=== PATIENT | female | born 1965 | race Caucasian/White ===

== ENCOUNTER → 2017-08-29 11:40 | Outpatient (CLI) | payer BC, SELFPAY ==
--- NOTE | 2017-08-29 11:45 | HPBI_ITS ---
MAMMOGRAPHY - BILATERAL SCREENING REASON FOR EXAM: Female, 52 years old. Routine annual screening examination. PERTINENT HISTORY: Non-contributory. TECHNIQUE: Digital bilateral breast ayush (3D mammographic acquisition) in the CC and MLO projections. 2-D mediolateral oblique (MLO) and craniocaudad (CC) views of both breasts were obtained. CAD: Full Field Digital Mammography with Computer Added Detection was performed. COMPARISON: Comparison is made with prior outside examination dated November 21, 2015. FINDINGS: Breast Composition: The breasts are heterogeneously dense, which may obscure small masses. There are no dominant masses or suspicious calcifications. No other significant abnormalities are identified. There has been no significant change since the prior study. HPBI/SCREENING MAMM (CAD), BILAT IMPRESSION: Stable bilateral screening mammogram. Yearly follow-up mammogram recommended. (A) ASSESSMENT CATEGORY: BIRADS Category 1: Negative. A letter regarding these results will be sent to the patient by the facility within 30 days. Approximately 10% of breast cancers are not detected by mammography. A normal mammogram should not delay biopsy of a clinically suspicious abnormality. [id number] Electronically Signed: Jakub Davis MD at 10:24 EST Tel [phone], Service support ,
== END ==
PROVIDERS: Family Provider Family Medicine; PCP Family Medicine; Visit Provider Obstetrics & Gynecology
DX: Z12.31 Encounter for screening mammogram for malignant neoplasm of breast (principal)
CPT/HCPCS: 77063; 77067

== ENCOUNTER 2018-01-23 20:15 | Emergency (ER) | payer BC, SELFPAY ==
[2018-01-23 20:16] VITALS: BP 132/80; PULSE 87; RESP 16; TEMP 36.5; O2SAT 98; BMI 29.6
[2018-01-23] MEDS: Glucagon 1 MG/ML Syringe IV (20:50)
[2018-01-23 23:09] VITALS: BP 124/87; PULSE 63; RESP 15; O2SAT 100
[2018-01-23] MEDS: Propofol 200 MG/20 ML Vial 80 MG IV BOLUS (23:30)
[2018-01-23 23:37] VITALS: BP 122/78; BP 154/83; PULSE 88; RESP 17; O2SAT 99
[2018-01-23 23:40] VITALS: BP 130/88; BP 154/83; PULSE 93; RESP 13; O2SAT 99
[2018-01-23 23:45] VITALS: BP 138/80; BP 154/83; PULSE 91; RESP 15; O2SAT 97
--- NOTE | 2018-01-23 23:46 | PCM.CONS.GEN ---
Reason for Consult Date of Consultation: 01/23/18 History of Present Illness: The patient is a 52 year old F with an esophageal foreign body. She was eating steak at lunch time. She has had the sensation of an esophageal foreign body since noon. is noticed previous episodes that have been not quite as severe, but has had occasional issues with solid food sticking in her esophagus. She has never had upper endoscopy Past Medical History Allergies No Known Allergies Allergy (Verified 01/23/18 20:16) Home Medications: Ambulatory Orders Medication Instructions Recorded NK [NK] 01/23/18 Surgical History: no surgical history Smoking Status: Never smoker Review of Systems Constitutional: Denies: Chills, Fever, Weight Change HEENT: Reports: Difficulty Swallowing, Dysphasia. Denies: Head Aches, Sinus Congestion, Sinus Drainage Cardiovascular: Denies: Chest Pain, Palpitations Respiratory: Denies: Cough, Shortness of breath at rest, Sputum production Gastrointestinal: Denies: Abdominal Pain, Nausea, Vomiting Genitourinary: Denies: Dysuria Musculoskeletal: Denies: Joint Pain, Joint Tenderness Skin: Denies: Rash, Wounds Neurological: Denies: Numbness, Tingling, Focal weakness Psychiatric: Denies: Anxiety, Depression, Homicidal Ideations, Suicidal Ideations Hematologic/ Lymphatic: Denies: Easy Bruising, Easy Bleeding - Physical Exam General: Alert, Oriented x3, Cooperative HEENT: Atraumatic, PERRLA, EOMI, Normocephalic Neck: Supple, No JVD, Negative Carotid Bruits Lungs: Clear to auscultation, Normal air movement Cardiovascular: Regular rate, No murmurs Abdomen: Bowel Sounds Present, Soft, Non Tender Extremities: No edema, Capillary Refill Less than 3 Seconds Skin: No rashes, No breakdown Musculoskeletal: No Tenderness to Palpation of Joints or Extremities Neurological: Cranial nerves II-XII grossly intact Psych/Mental Status: Normal Affect, Appropriate Vital Signs Temp Pulse Resp BP Pulse Ox 97.7 F L 63 15 124/87 H 100 01/23/18 20:16 01/23/18 23:09 01/23/18 23:09 01/23/18 23:09 01/23/18 23:09 Oxygen Delivery Method Room Air Weight: 75.8 kg Body Mass Index (BMI) 29.6 Assessment/Plan Esophageal foreign body-removed the patient try the procedure well, and this was a relatively small piece of meat which after 2 attempts at removal with a Gannon net was able to be passed from the stomach relatively easily. The patient is being discharged from the immersed department with recommendations to return immediately if she notes any chest pain, fever or differential worsening difficulty swallowing. Otherwise, I recommended she contact my office earlier this week with plans for follow-up endoscopy in 2-4 weeks to assess for esophageal stricture or eosinophilic esophagitis.
--- NOTE | 2018-01-23 23:50 | OP.PCM_ITS ---
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 Sign in was performed verifying patient, site, planned procedure, critical nursing information, the patient was monitored with cardiac, pulse oximetric, EKG and blood pressure monitoring devices, sedation was provided by the emergency room physician using propofol. Following IV sedation and after the oropharynx was sprayed with Cetacaine spray , a video gastroscope was inserted in the oropharynx and advanced down the esophagus without difficulty. The scope encounter any significant food bolus in the distal esophagus. This was removed in piecemeal fashion with both a Gannon net and/or grasper. After removing multiple pieces of the foreign body in the above fashion, the foreign body was able to be gently passed into the stomach with pressure from the scope. The stomach was visualized unremarkable area did as the gastroscope was removed , the esophagus demonstrated irritation, both from the food bolus and from attempts to remove it without significant deep injury. The patient tolerated the procedure well and was maintained in the trauma bay in stable condition
[2018-01-23 23:52] VITALS: BP 135/81; BP 154/83; PULSE 89; RESP 13; O2SAT 98
--- NOTE | 2018-01-24 00:03 | ED.VISSUMM ---
- ER Visit Summary Date of Service: 01/24/18 Chief Complaint: Food impaction History of Present Illness: The patient is a 52 F who was eating steak for lunch today. Patient feels like a piece of steak got stuck. She has not been able to tolerate p.o. since that time. She ate lunch around 1230 this afternoon. Patient presents at 830 with continued symptoms. She states she has had similar episodes in the past but so has been able to vomit up the blockage and is never required scope. Physical Examination: Vital signs are unremarkable. Patient sitting upright in bed. She speaking full sentences. She does walk to the [place] and spit frequently. Head neck examination is unremarkable. Heart is regular rate and rhythm. Lung sounds are clear. Abdomen is soft nontender. Test Results: [] Emergency Department Course and Treatment: Patient was given IV glucagon with no significant improvement in her symptoms. Dr. Alamo presented to the emergency room. Patient was consented for procedural sedation and EGD. A total of 80 mg of IV propofol was given for sedation. The food bolus was pushed into the stomach by Dr. Alamo. At this time patient is awake and alert. She is able tolerate p.o. fluids without difficulty. Treatment Plan: [] Disposition: Discharge Impression: 1. Food bolus to esophagus 2. Procedural sedation by ED physician and EGD by surgeon This note was generated with [employer] dictation software. It may contain incorrect words, spelling, and punctuation that were not noted in review of the chart prior to signing ED Disposition - Plan for ED Patient: Disposition: Home or Assisted Living Chief Complaint: Foreign Body Instructions: ED Foreign Body Esophageal Rslv Referrals: Ezra Verma MD [Primary Care Provider] - As Needed
--- NOTE | 2018-01-24 00:05 | ED.DEP ---
ED Disposition - Plan for ED Patient: Disposition: Home or Assisted Living Chief Complaint: Foreign Body Instructions: ED Foreign Body Esophageal Rslv Referrals: Ezra Verma MD [Primary Care Provider] - As Needed
[2018-01-24 00:21] VITALS: BP 125/89; PULSE 74; RESP 18
== END 2018-01-24 00:22 | disposition home or self-care (01) ==
PROVIDERS: Surgery; Emergency Provider Emergency Medicine; Family Provider Family Medicine; PCP Family Medicine
PROC: 0DJ08ZZ Inspection of Upper Intestinal Tract, Via Natural or Artificial Opening Endoscopic (ICD-10-PCS; CPT 43235; principal; 2018-01-23 22:00)
DX: T18.128A Food in esophagus causing other injury, initial encounter (principal); X58.XXXA Exposure to other specified factors, initial encounter; Y93.89 Activity, other specified; Y92.9 Unspecified place or not applicable
CPT/HCPCS: 43247; 96374; 99284; J7030; A4216; J1610

== ENCOUNTER → 2018-07-20 13:48 | Outpatient (CLI) | payer BC, SELFPAY ==
[2018-07-23 15:17] LABS: HPV HC, High Risk Negative (Negative)
--- OUTSIDE RECORDS SUMMARY | 2018-10-22 05:10 | XMS RPT_ITS ---
:1965 Author Organization OHIP Care Team Providers Name Role Phone ROQUE CAREY Attending Unavailable ROQUE CAREY Admitting Unavailable ROQUE CAREY Attending Unavailable GLEN ABREU (LEXY) Referring Unavailable Pedro Bowman Attending Unavailable Pedro Bowman Attending Unavailable Sancho Verma Primary Care Unavailable Eula Thrasher Attending Unavailable Alex Jules Referring Unavailable [facility] Primary [facility] Unavailable PROBLEMS PROBLEMS DATE TYPE CONDITION / CODE ATTENDING STATUS SOURCE 07/20/2018 Unknown Z12.4 - Encounter Pedro Bowman Active Nancy for screening for [facility] neoplasm of Repository cervix / Z12.4(ICD-10) 02/06/2018 Active Unspecified Juanito CAREY [facility] foreign body in [facility] esophagus causing Repository other injury, initial encounter / T18.108A(ICD-10) 08/29/2017 Unknown Z12.31 - Pedro Bowman Encounter for [facility] screening [facility] mammogram for Repository malignant neoplasm of breast / Z12.31(ICD-10) PROCEDURES PROCEDURES No Procedure Records FoundRESULTS RESULTS PAP I-G HPV HI Collected: 07/20/2018 Status: F Source: [place] RISK 9:00 AM [facility] REPOSITORY Order Comment: CYTOLOGY INFORMATION: - CLINICAL INFORMATION: POSTMENOPAUSAL - DATE LMP/MENOPAUSE: - COLLECTION VIAL: Thin Prep Vial - CALENDER WIND UP TENDER SOURCE: CERVICAL/ENDOCERVICAL - COLLECTION TECHNIQUE: BRUSH/SPATULA Specimen Comment: [id number] Specimen Comment: Source.............Cervix;Endocervix Specimen Comment: Other..............Post Menopausal Specimen Comment: No. of containers..01 ThinPrep Vial TYPE CODE TESTS RESULT OUT OF RANGE REFERENCE UNITS LAB L7400.0800 . Normal DIAGN Comment Result Comment: NEGATIVE FOR INTRAEPITHELIAL LESION AND MALIGNANCY. CELLULAR CHANGES ASSOCIATED WITH ATROPHY ARE PRESENT. LAB L7400.0900 . Normal ADEQ Comment Result Comment: Satisfactory for evaluation. Endocervical component may not be distinguished in cases of atrophy. LAB L7400.1400 . Normal PERFORM Comment Result Comment: Kathrine Yanez, Geoscientist (ASCP) LAB L7400.2575 . Normal TEST METHOD Comment Result Comment: This liquid based ThinPrep(R) pap test was screened with the use of an image guided system. LAB L7400.2600 . Normal . COMM LAB L7400.2700 . Normal PAPSMR Comment Result Comment: The Pap smear is a screening test designed to aid in the detection of premalignant and malignant conditions of the uterine cervix. It is not a diagnostic procedure and should not be used as the sole means of detecting cervical cancer. Both false-positive and false-negative reports do occur. LAB L7400.2950 Negative Normal HPV Negative HC,HGH RISK Result Comment: This high-risk HPV test detects thirteen high-risk types (16/18/31/33/35/39/45/51/52/56/58/59/68) without differentiation. Performed at: [address] [id number] Payroll Clerk: Megan Perez MD, Phone: [phone] Performed at: =[address] [id number] Payroll Clerk: Megan Perez MD, Phone: [phone] Performed By: #### L7400.0375 #### [facility] (refer to report for specific site) refer to report for address and phone number NURSING PROG Observed: 02/06/2018 Status: COMPLETED Source: [place] 1:10 PM [facility] REPOSITORY HNO ID: [id number] Author: Ag Bañuelos RN Service: Nursing Author Type: Registered Nurse Type: Nursing Progress Note Filed: 02/06/2018 1:10 PM Note Text: Patient did not experience a fall prior to discharge. Patient did not experience a burn prior to discharge. Ag Bañuelos RN PT ED Observed: 02/06/2018 Status: COMPLETED Source: [place] 12:45 PM [facility] REPOSITORY HNO ID: [id number] Author: Ag LundRn) ARTURO Bañuelos Service: Nursing Author Type: Registered Nurse Type: Patient Education Filed: 02/06/2018 12:46 PM Note Text: POST OP LEARNING RESPONSE INSTRUCTION PROVIDED TO: Patient and family member METHOD OF INSTRUCTION: Individual instruction Written instruction - handouts Verbal instruction PATIENT / FAMILY RESPONSE: Information received as demonstrated by interest and questions FOLLOW-UP PLAN: Patient instructed to call with any further issues SUPPLEMENTAL MATERIAL: None REFERRAL (RECOMMENDATION): None Electronically Signed By: Ag Bañuelos RN In Department: AMBULATORY SURGERY NURSING PROG Observed: 02/06/2018 Status: COMPLETED Source: [place] 12:41 PM [facility] REPOSITORY HNO ID: [id number] Author: Ag Smalls) ARTURO Bañuelos Service: Nursing Author Type: Registered Nurse Type: Nursing Progress Note Filed: 02/06/2018 12:43 PM Note Text: Awakening, tolerating snack, spouse at her side. NURSING PROG Observed: 02/06/2018 Status: COMPLETED Source: [place] 12:26 PM [facility] REPOSITORY HNO ID: [id number] Author: Ag Smalls) ARTURO Bañuelos Service: Nursing Author Type: Registered Nurse Type: Nursing Progress Note Filed: 02/06/2018 12:26 PM Note Text: Pt into Endo recovery room in satisfactory condition. Resting on left side. Pt. sleepy but arousable. Abdomen soft, no complaints, all safety maintained. Will continue to monitor. NURSING PROG Observed: 02/06/2018 Status: COMPLETED Source: [place] 12:15 PM [facility] REPOSITORY HNO ID: [id number] Author: Miriam (Rn) ARTURO Louise Service: Nursing Author Type: Registered Nurse Type: Nursing Progress Note Filed: 02/06/2018 12:15 PM Note Text: Patient did not experience a fall within the Intraoperative area. Patient did not experience a burn within the Intraoperative area. Miriam Louise RN NURSING PROG Observed: 02/06/2018 Status: COMPLETED Source: [place] 11:49 AM [facility] REPOSITORY HNO ID: [id number] Author: Alaina LundRn) ARTURO Huitron Service: Nursing Author Type: Registered Nurse Type: Nursing Progress Note Filed: 02/06/2018 11:51 AM Note Text: [facility] PRE-OP NURSING HAND OFF NOTE SBAR Hand off given to Miriam Louise RN. Hand off was communicated verbally and at the patient's bedside and all questions were answered. FALLS/ROSS Patient did not experience a fall within the Preoperative area. Patient did not experience a burn within the Preoperative area. Alaina Huitron RN HISTORY PHYSICAL Observed: 02/06/2018 Status: COMPLETED Source: [place] 10:17 AM [facility] REPOSITORY HNO ID: [id number] Author: Roque Carey Service: General Surgery Author Type: Physician Type: HANDP Filed: 02/06/2018 10:17 AM Note Text: HISTORY AND PHYSICAL ? Nette iPsano 1965 ? REFERRING PHYSICIAN: [facility] ? CHIEF COMPLAINT: Post Op (egd) ? HPI: The patient is a 52 year old female, who I had seen in the emergency department on January 23, 2018 for an esophageal foreign body- steak. The patient's had recurring episodes of dysphagia. She has not had previous upper endoscopy. She returns today. She notes she is swallowing without difficulties, although has minor sore throat discomfort. She also had a four-day headache after discharge from the ER. ? PAST MEDICAL HISTORY PAST MEDICAL HISTORY Diagnosis Date - Cervicitis and endocervicitis 09/16/06 ? cerivcal inflammation on biopsy done for ascus pap - Human papillomavirus in conditions classified elsewhere and of unspecified site 08/26/06 - Papanicolaou smear of cervix with atypical squamous cells of undetermined significance (ASC-US) 08/26/06 - past ? ? abnormal mammograms nothing significant found. ? ? PAST SURGICAL HISTORY PAST SURGICAL HISTORY Procedure Laterality Date - COLPOSCOPY W BX CERVIX ? 09/16/06 ? chronic inflammation ? ? ? CURRENT MEDICATIONS ? Current Outpatient Prescriptions: fluticasone propionate (FLONASE NASAL) Use in the nose. TRIPHASIL-28 50-30 (6)/75-40 (5)/125-30(10) ORAL Tab Take one(1) tablet daily. (Patient not taking: No sig reported) LORATADINE-PSEUDOEPHEDRINE SR 10 MG-240 MG 24 HR TAB as necessary ? No current facility-administered medications for this visit. ? ALLERGIES: Cephalexin ? PERSONAL HISTORY: SOCIAL HISTORY Social History Marital status: Single Spouse name: Years of education: 12 Number of children: 2 ? 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 Social History Main Topics Smoking status: Never Smoker ? Smokeless tobacco: Never Used Alcohol use: Yes Comment: occasional Drug use: No Sexual activity: Yes Partners with: Male control/protection: Pill Comment: trilevlin ? ? FAMILY HISTORY: FAMILY HISTORY FAMILY HISTORY Problem Relation Age of Onset - Lipids Father ? - Thyroid Mother ? - kidney [Other] [OTHER] Father ? ? ? shut down twice - Heart Father ? - liver [Other] [OTHER] Father ? - liver [Other] [OTHER] Sister ? - Lipids Brother ? - Hypertension Father ? - Diabetes Father ? ? ? REVIEW OF SYMPTOMS: The review of systems data was entered by the nurse and reviewed by me ? There are no exam notes on file for this visit. ? PHYSICAL EXAMINATION: ? General: The patient is 52 year old female, well nourished, well hydrated in no acute distress. The patient is oriented to time, place, and person. ? VITALS: Blood pressure 104/74, pulse 76, temperature 36.6 ?C (97.9 ?F), weight 74.8 kg (165 lb). There is no height or weight on file to calculate BMI. ? HEENT: Normal cephalic, ataumatic, pupils are equally round, sclera are anicteric, mucous membranes are moist, oropharynx is clear. Neck has no masses, asymmetry or lymphadenopathy. Thyroid is unremarkable. ? Respiratory: Clear to auscultation and percussion. Normal respiratory excursion and pattern. ? Cardiac: Examination is regular rate and rhythm. ? Abdominal exam: Soft, nontender, with no palpable masses. No hepatosplenomegaly. No palpable hernias. ? Rectal exam: exam deferred ? Extremities: no clubbing, cyanosis or edema. No adenopathy. ? Other: ? LABORATORY VALUES: As Noted ? RADIOLOGIC STUDIES: As Noted ? Assessment IMPRESSION: Esophageal foreign body ? PLAN: I plan to perform upper endoscopy. We discussed the risks and benefits of the planned endoscopy. I have informed the patient that complications can occur including failure to complete the endoscopy and perforation. The patient had the opportunity to ask questions concerning the planned endoscopy. My staff has also explained the procedure to the patient in understandable terms and has given the patient printed material concerning the procedure. The patient freely consents to surgery. ? Diagnoses: (T18.108A) Esophageal foreign body, initial encounter (primary encounter diagnosis) ? ? Return to Clinic: The patient is instructed to follow-up with me after the testing has been completed. ? Roque Carey MD PT ED Observed: 02/06/2018 Status: COMPLETED Source: [place] 9:54 AM [facility] REPOSITORY HNO ID: [id number] Author: Alaina Godoy (Rn) ARTURO Huitron Service: Nursing Author Type: Registered Nurse Type: Patient Education Filed: 02/06/2018 9:55 AM Note Text: PRE OP LEARNING ASSESSMENT PROCEDURE/SURGERY: GI PROCEDURES: EGD READINESS TO LEARN COGNITIVE ABILITY: Alert and oriented MOTIVATION TO LEARN: Eager FAMILY SUPPORT: High - Very involved in pt care PATIENT LEARNS BEST BY: Verbal Instruction FACTORS AFFECTING LEARNING: None PHYSICAL LIMITATIONS AFFECTING LEARNING: None Electronically Signed By: Alaina Huitron RN In Department: AMBULATORY SURGERY SURGICAL PATHOLOGY Observed: 02/06/2018 Status: C Source: [place] 12:00 AM [facility] REPOSITORY ADDENDUM PRESENT Specimen originated from [facility] Specimen #: [id number] Submitting Physician: ROQUE CAREY ([id number]) FINAL DIAGNOSIS 1. Stomach, antrum, biopsy (A) - Antral-type gastric mucosa with changes of inactive chronic gastritis with mild reactive epithelial changes. - An H. pylori immunohistochemical stain will be performed, the results of which will be reported in an addendum. 2. Esophagogastric junction, biopsy (B) - Fragments of squamous mucosa with reactive and regenerative epithelial changes of the type often associated with gastroesophageal reflux disease. - No prominence in eosinophils and no intestinal metaplasia. 3. Esophagus, mid, biopsy (C) - Fragments of squamous mucosa with no diagnostic abnormalities. - No prominence in eosinophils and no intestinal metaplasia. [place] 02/10/2018 Refugio Garces M.D., Ph.D. (Electronic Signature) SPECIMEN SUBMITTED A: ANTRUM, BIOPSY H/H B: ESOPHAGOGASTRIC JUNCTION, BIOPSY C: MID ESOPHAGUS, BIOPSY ADDENDUM Date Ordered: 02/11/2018 Date Reported: 02/11/2018 Given the background of chronic gastritis a Helicobacter pylori immunostain was performed on block A1 and is negative for Helicobacter pylori organisms. //02-11-2018 Laboratory Developed Test (LDT) Disclaimer: Positive and negative controls stain appropriately. Performance characteristics of immunohistochemical, immunofluorescent and chromogenic in-situ hybridization tests have been determined by [facility] [place] ([facility]) in a manner consistent with CLIA requirements. One or more of these tests have not been cleared or approved by the FDA. [facility] is regulated under CLIA as qualified to perform high-complexity testing. These tests are used for clinical purposes. They should not be regarded as investigational or for research. Addendum Pathologist: Refugio Garces M.D., Ph.D. Electronic Signature CLINICAL DATA T18.108A GROSS DESCRIPTION A. Received in formalin is one piece of raines, soft tissue measuring 0.3 x 0.2 x 0.2 cm. Totally submitted in one cassette. B. Received in formalin are three pieces of raines, soft tissue aggregating to 0.6 x 0.2 x 0.1 cm. Totally submitted in one cassette. C. Received in formalin are two pieces of raines, soft tissue aggregating to 0.5 x 0.2 x 0.1 cm. Totally submitted in one cassette. Gross examination performed at [facility], [address] [place] [address] 02/06/2018 10:08:54 PM Date of Report: 02/10/2018 Date of Procedure: 02/06/2018 Date of Receipt: 02/06/2018 Submitted by: ROQUE CAREY ([email or web address]) Location: [facility] Diagnostic interpretation performed at [place] [address]. PROGRESS Observed: 01/30/2018 Status: COMPLETED Source: [place] 2:42 PM [facility] REPOSITORY HNO ID: [id number] Author: Roque Carey Service: (none) Author Type: Physician Type: Progress Notes Filed: 01/30/2018 2:43 PM Note Text: HISTORY AND PHYSICAL [facility] 1965 REFERRING PHYSICIAN: [facility] [place] CHIEF COMPLAINT: Post Op (egd) HPI: The patient is a 52 year old female, who I had seen in the emergency department on January 23, 2018 for an esophageal foreign body- steak. The patient's had recurring episodes of dysphagia. She has not had previous upper endoscopy. She returns today. She notes she is swallowing without difficulties, although has minor sore throat discomfort. She also had a four-day headache after discharge from the ER. PAST MEDICAL HISTORY Diagnosis Date - Cervicitis and endocervicitis 09/16/06 cerivcal inflammation on biopsy done for ascus pap - Human papillomavirus in conditions classified elsewhere and of unspecified site 08/26/06 - Papanicolaou smear of cervix with atypical squamous cells of undetermined significance (ASC-US) 08/26/06 - past abnormal mammograms nothing significant found. PAST SURGICAL HISTORY Procedure Laterality Date - COLPOSCOPY W BX CERVIX 09/16/06 chronic inflammation Current Outpatient Prescriptions: fluticasone propionate (FLONASE NASAL) Use in the nose. TRIPHASIL-28 50-30 (6)/75-40 (5)/125-30(10) ORAL Tab Take one(1) tablet daily. (Patient not taking: No sig reported) LORATADINE-PSEUDOEPHEDRINE SR 10 MG-240 MG 24 HR TAB as necessary No current facility-administered medications for this visit. 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 [employer] Social History Main Topics Smoking status: Never Smoker Smokeless tobacco: Never Used Alcohol use: Yes Comment: occasional Drug use: No Sexual activity: Yes Partners with: Male control/protection: Pill Comment: giuseppe FAMILY HISTORY: FAMILY HISTORY Problem Relation Age of Onset - Lipids Father - Thyroid Mother - kidney [Other] [OTHER] Father shut down twice - Heart Father - liver [Other] [OTHER] Father - liver [Other] [OTHER] Sister - Lipids Brother - Hypertension Father - Diabetes Father REVIEW OF SYMPTOMS: The review of systems data was entered by the nurse and reviewed by me There are no exam notes on file for this visit. PHYSICAL EXAMINATION: General: The patient is 52 year old female, well nourished, well hydrated in no acute distress. The patient is oriented to time, place, and person. VITALS: Blood pressure 104/74, pulse 76, temperature 36.6 ?C (97.9 ?F), weight 74.8 kg (165 lb). There is no height or weight on file to calculate BMI. HEENT: Normal cephalic, ataumatic, pupils are equally round, sclera are anicteric, mucous membranes are moist, oropharynx is clear. Neck has no masses, asymmetry or lymphadenopathy. Thyroid is unremarkable. Respiratory: Clear to auscultation and percussion. Normal respiratory excursion and pattern. Cardiac: Examination is regular rate and rhythm. Abdominal exam: Soft, nontender, with no palpable masses. No hepatosplenomegaly. No palpable hernias. Rectal exam: exam deferred Extremities: no clubbing, cyanosis or edema. No adenopathy. Other: LABORATORY VALUES: As Noted RADIOLOGIC STUDIES: As Noted Assessment IMPRESSION: Esophageal foreign body PLAN: I plan to perform upper endoscopy. We discussed the risks and benefits of the planned endoscopy. I have informed the patient that complications can occur including failure to complete the endoscopy and perforation. The patient had the opportunity to ask questions concerning the planned endoscopy. My staff has also explained the procedure to the patient in understandable terms and has given the patient printed material concerning the procedure. The patient freely consents to surgery. Diagnoses: (T18.108A) Esophageal foreign body, initial encounter (primary encounter diagnosis) Return to Clinic: The patient is instructed to follow-up with me after the testing has been completed. Roque Carey MD CNOV Observed: 01/30/2018 Status: COMPLETED Source: [place] 2:00 PM [facility] REPOSITORY Office Visit (GENSWS) NETTE PISANO ([id number]) 1965 F Date Time Provider Department 01/30/18 2:00 PM ROQUE CAREY GENZEYNEP During your visit today, we recorded the following information about you: Temperature Pulse Blood pressure Weight 97.9 degrees 76/minute 104/74 74.8 kg Roque Carey MD 01/30/2018 2:43 PM Signed HISTORY AND PHYSICAL Nette Pisano 1965 [facility]F COMPLAINT: Post Op (egd) HPI: The patient is a 52 year old female, who I had seen in the emergency department on January 23, 2018 for an esophageal foreign body- steak. The patient's had recurring episodes of dysphagia. She has not had previous upper endoscopy. She returns today. She notes she is swallowing without difficulties, although has minor sore throat discomfort. She also had a four-day headache after discharge from the ER. PAST MEDICAL HISTORY Diagnosis Date - Cervicitis and endocervicitis 09/16/06 cerivcal inflammation on biopsy done for ascus pap - Human papillomavirus in conditions classified elsewhere and of unspecified site 08/26/06 - Papanicolaou smear of cervix with atypical squamous cells of undetermined significance (ASC-US) 08/26/06 - past abnormal mammograms nothing significant found. PAST SURGICAL HISTORY Procedure Laterality Date - COLPOSCOPY W BX CERVIX 09/16/06 chronic inflammation Current Outpatient Prescriptions: fluticasone propionate (FLONASE NASAL) Use in the nose. TRIPHASIL-28 50-30 (6)/75-40 (5)/125-30(10) ORAL Tab Take one(1) tablet daily. (Patient not taking: No sig reported) LORATADINE-PSEUDOEPHEDRINE SR 10 MG-240 MG 24 HR TAB as necessary No current facility-administered medications for this visit. 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 [employer] Social History Main Topics Smoking status: Never Smoker Smokeless tobacco: Never Used Alcohol use: Yes Comment: occasional Drug use: No Sexual activity: Yes Partners with: Male control/protection: Pill Comment: giuseppe FAMILY HISTORY: FAMILY HISTORY Problem Relation Age of Onset - Lipids Father - Thyroid Mother - kidney [Other] [OTHER] Father shut down twice - Heart Father - liver [Other] [OTHER] Father - liver [Other] [OTHER] Sister - Lipids Brother - Hypertension Father - Diabetes Father REVIEW OF SYMPTOMS: The review of systems data was entered by the nurse and reviewed by me There are no exam notes on file for this visit. PHYSICAL EXAMINATION: General: The patient is 52 year old female, well nourished, well hydrated in no acute distress. The patient is oriented to time, place, and person. VITALS: Blood pressure 104/74, pulse 76, temperature 36.6 ?C (97.9 ?F), weight 74.8 kg (165 lb). There is no height or weight on file to calculate BMI. HEENT: Normal cephalic, ataumatic, pupils are equally round, sclera are anicteric, mucous membranes are moist, oropharynx is clear. Neck has no masses, asymmetry or lymphadenopathy. Thyroid is unremarkable. Respiratory: Clear to auscultation and percussion. Normal respiratory excursion and pattern. Cardiac: Examination is regular rate and rhythm. Abdominal exam: Soft, nontender, with no palpable masses. No hepatosplenomegaly. No palpable hernias. Rectal exam: exam deferred Extremities: no clubbing, cyanosis or edema. No adenopathy. Other: LABORATORY VALUES: As Noted RADIOLOGIC STUDIES: As Noted Assessment IMPRESSION: Esophageal foreign body PLAN: I plan to perform upper endoscopy. We discussed the risks and benefits of the planned endoscopy. I have informed the patient that complications can occur including failure to complete the endoscopy and perforation. The patient had the opportunity to ask questions concerning the planned endoscopy. My staff has also explained the procedure to the patient in understandable terms and has given the patient printed material concerning the procedure. The patient freely consents to surgery. Diagnoses: (T18.108A) Esophageal foreign body, initial encounter (primary encounter diagnosis) Return to Clinic: The patient is instructed to follow-up with me after the testing has been completed. MD Asha Klein RN 01/30/2018 2:51 PM Signed REVIEW OF SYSTEMS: General: The patient denies fatigue, denies weight loss, denies weight gain, denies feeling hot, and denies feelings of cold. Eyes: The patient denies glaucoma, denies eye injury/surgery, wears glasses or contacts. Ear/Nose/Throat: The patient notes allergies, denies hayfever, denies ear infections, and denies bloody noses. Cardiovascular: The patient denies chest pain, denies heart disease, denies high blood pressure,denies cardiac stent, denies prior heart attack, denies irregular heart beat, denies high cholesterol, denies poor circulation, denies heart failure, other cardiac issues, denies claudication, denies cold feet, denies peripheral arterial stent. Respiratory: The patient denies tuberculosis, denies pneumonia, denies frequent cough, denies pulmonary embolism, denies shortness of breath, and denies coughing up blood. Gastrointestinal: The patient notes difficulty swallowing, denies acid reflux, denies ulcers, denies vomiting, denies jaundice/hepatitis, denies gallbladder problems, denies black or tarry stools, denies hemorrhoids, denies bleeding from rectum, denies diverticulitis, denies constipation, denies diarrhea, denies loss of stool control, and denies hernias. Kidney/Bladder: The patient denies kidney stones, denies urine infections, and denies bloody urine. Skin: The patient denies a history of skin cancer, denies bleeding/changing moles, and denies a history of skin rash. Neurologic: The patient denies a history of epilepsy/convulsions, denies headaches, denies head/spinal injuries, and denies stroke/TIA. Psychiatric: The patient denies psychiatric medications, denies depression, and denies voices, denies substance abuse. Endocrine: The patient denies thyroid disorders, denies diabetes, and denies hormonal problems. Hematologic: The patient denies a history of bruising, denies bleeding, and denies anemia, denies blood clots. Infections: The patient denies a history of measles and mumps, denies rheumatic fever, and denies sexually transmitted diseases. Musculoskeletal: The patient denies back pain/injury, denies back problems, denies sciatica, denies knee/foot trouble, denies arthritis, or denies gout. When was patient's last Mammogram screening? 08/2017 Last Colonoscopy: no Asha Asif RN Referring Provider: [facility] [[id number]] Allergies As of Date: 01/30/2018 Noted Allergy Reaction CEPHALEXIN 08/26/2006 2 - Rash Date Reviewed: 01/30/2018 Reviewed by: Roque Carey - Fully Assessed Reason for Visit: Post Op [174] Cmt: egd Primary Visit Diagnosis:Esophageal foreign body, initial encounter [T18.108A] Prescriptions as of 01/30/2018 Sig: FLONASE NASAL Use in the nose. TRIPHASIL (28) 50-30 (6)/75-4* Take one(1) tablet daily. Patient not taking: No sig reported LORATADINE-PSEUDOEPHEDRINE ER* as necessary Problem List As Of Date 01/30/2018 Noted Resolved PAP SMEAR OF CERVIX W ASCUS [R87.610] INVALID FOR* HUMAN PAPILLOMAVIRUS NOS [B97.7] INVALID FOR* Visit Notes: >> Asha Asif RN FriJan 30, 2018 2:50 PM Status: Signed REVIEW OF SYSTEMS: General: The patient denies fatigue, denies weight loss, denies weight gain, denies feeling hot, and denies feelings of cold. Eyes: The patient denies glaucoma, denies eye injury/surgery, wears glasses or contacts. Ear/Nose/Throat: The patient notes allergies, denies hayfever, denies ear infections, and denies bloody noses. Cardiovascular: The patient denies chest pain, denies heart disease, denies high blood pressure,denies cardiac stent, denies prior heart attack, denies irregular heart beat, denies high cholesterol, denies poor circulation, denies heart failure, other cardiac issues, denies claudication, denies cold feet, denies peripheral arterial stent. Respiratory: The patient denies tuberculosis, denies pneumonia, denies frequent cough, denies pulmonary embolism, denies shortness of breath, and denies coughing up blood. Gastrointestinal: The patient notes difficulty swallowing, denies acid reflux, denies ulcers, denies vomiting, denies jaundice/hepatitis, denies gallbladder problems, denies black or tarry stools, denies hemorrhoids, denies bleeding from rectum, denies diverticulitis, denies constipation, denies diarrhea, denies loss of stool control, and denies hernias. Kidney/Bladder: The patient denies kidney stones, denies urine infections, and denies bloody urine. Skin: The patient denies a history of skin cancer, denies bleeding/changing moles, and denies a history of skin rash. Neurologic: The patient denies a history of epilepsy/convulsions, denies headaches, denies head/spinal injuries, and denies stroke/TIA. Psychiatric: The patient denies psychiatric medications, denies depression, and denies voices, denies substance abuse. Endocrine: The patient denies thyroid disorders, denies diabetes, and denies hormonal problems. Hematologic: The patient denies a history of bruising, denies bleeding, and denies anemia, denies blood clots. Infections: The patient denies a history of measles and mumps, denies rheumatic fever, and denies sexually transmitted diseases. Musculoskeletal: The patient denies back pain/injury, denies back problems, denies sciatica, denies knee/foot trouble, denies arthritis, or denies gout. When was patient's last Mammogram screening? 08/2017 Last Colonoscopy: no Asha Asif ARTURO Encounter Status:Closed by ROQUE CAREY MD on 01/30/18 HOSP Observed: 01/30/2018 Status: COMPLETED Source: [place] 12:00 AM [facility] REPOSITORY Patient:Nette Pisano MRN: <[id number]> Height:5' 2.5(1.588 m) Weight:165 lb (74.844 kg) Outpatient Medications as of 02/06/18: fluticasone propionate (FLONASE NASAL) LORATADINE-PSEUDOEPHEDRINE SR 10 MG-240 MG 24 HR TAB Admission/Clinic Administered Medications as of 02/06/18: lactated ringers infusion Problem List: Papanicolaou smear of cervix with atypical squamous cells of undetermined significance (ASC-US) [R87.610] Human papillomavirus in conditions classified elsewhere and of unspecified site [B97.7] Allergies: Cephalexin Date Verified: 02/06/18 Lab Values No results within the last 30 days for the following basenames: K,HCT Progress Notes ([facility]): Michael Hyde 01/30/2018 2:47 PM Signed 02-06-2018 EGD Michael Gannon LPN 02/03/2018 7:21 AM Signed please file order for EGD Progress Notes ([facility]): Roque Carey MD 01/30/2018 2:43 PM Signed HISTORY AND PHYSICAL Nette Pisano 1965 REFERRING PHYSICIAN: [facility], Baldev Cruz CHIEF COMPLAINT: Post Op (egd) HPI: The patient is a 52 year old female, who I had seen in the emergency department on January 23, 2018 for an esophageal foreign body- steak. The patient's had recurring episodes of dysphagia. She has not had previous upper endoscopy. She returns today. She notes she is swallowing without difficulties, although has minor sore throat discomfort. She also had a four-day headache after discharge from the ER. PAST MEDICAL HISTORY Diagnosis Date - Cervicitis and endocervicitis 09/16/06 cerivcal inflammation on biopsy done for ascus pap - Human papillomavirus in conditions classified elsewhere and of unspecified site 08/26/06 - Papanicolaou smear of cervix with atypical squamous cells of undetermined significance (ASC-US) 08/26/06 - past abnormal mammograms nothing significant found. PAST SURGICAL HISTORY Procedure Laterality Date - COLPOSCOPY W BX CERVIX 09/16/06 chronic inflammation Current Outpatient Prescriptions: fluticasone propionate (FLONASE NASAL) Use in the nose. TRIPHASIL-28 50-30 (6)/75-40 (5)/125-30(10) ORAL Tab Take one(1) tablet daily. (Patient not taking: No sig reported) LORATADINE-PSEUDOEPHEDRINE SR 10 MG-240 MG 24 HR TAB as necessary No current facility-administered medications for this visit. 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 [employer] Social History Main Topics Smoking status: Never Smoker Smokeless tobacco: Never Used Alcohol use: Yes Comment: occasional Drug use: No Sexual activity: Yes Partners with: Male control/protection: Pill Comment: giuseppe FAMILY HISTORY: FAMILY HISTORY Problem Relation Age of Onset - Lipids Father - Thyroid Mother - kidney [Other] [OTHER] Father shut down twice - Heart Father - liver [Other] [OTHER] Father - liver [Other] [OTHER] Sister - Lipids Brother - Hypertension Father - Diabetes Father REVIEW OF SYMPTOMS: The review of systems data was entered by the nurse and reviewed by me There are no exam notes on file for this visit. PHYSICAL EXAMINATION: General: The patient is 52 year old female, well nourished, well hydrated in no acute distress. The patient is oriented to time, place, and person. VITALS: Blood pressure 104/74, pulse 76, temperature 36.6 ?C (97.9 ?F), weight 74.8 kg (165 lb). There is no height or weight on file to calculate BMI. HEENT: Normal cephalic, ataumatic, pupils are equally round, sclera are anicteric, mucous membranes are moist, oropharynx is clear. Neck has no masses, asymmetry or lymphadenopathy. Thyroid is unremarkable. Respiratory: Clear to auscultation and percussion. Normal respiratory excursion and pattern. Cardiac: Examination is regular rate and rhythm. Abdominal exam: Soft, nontender, with no palpable masses. No hepatosplenomegaly. No palpable hernias. Rectal exam: exam deferred Extremities: no clubbing, cyanosis or edema. No adenopathy. Other: LABORATORY VALUES: As Noted RADIOLOGIC STUDIES: As Noted Assessment IMPRESSION: Esophageal foreign body PLAN: I plan to perform upper endoscopy. We discussed the risks and benefits of the planned endoscopy. I have informed the patient that complications can occur including failure to complete the endoscopy and perforation. The patient had the opportunity to ask questions concerning the planned endoscopy. My staff has also explained the procedure to the patient in understandable terms and has given the patient printed material concerning the procedure. The patient freely consents to surgery. Diagnoses: (T18.108A) Esophageal foreign body, initial encounter (primary encounter diagnosis) Return to Clinic: The patient is instructed to follow-up with me after the testing has been completed. MD Asha Klein RN 01/30/2018 2:51 PM Signed REVIEW OF SYSTEMS: General: The patient denies fatigue, denies weight loss, denies weight gain, denies feeling hot, and denies feelings of cold. Eyes: The patient denies glaucoma, denies eye injury/surgery, wears glasses or contacts. Ear/Nose/Throat: The patient notes allergies, denies hayfever, denies ear infections, and denies bloody noses. Cardiovascular: The patient denies chest pain, denies heart disease, denies high blood pressure,denies cardiac stent, denies prior heart attack, denies irregular heart beat, denies high cholesterol, denies poor circulation, denies heart failure, other cardiac issues, denies claudication, denies cold feet, denies peripheral arterial stent. Respiratory: The patient denies tuberculosis, denies pneumonia, denies frequent cough, denies pulmonary embolism, denies shortness of breath, and denies coughing up blood. Gastrointestinal: The patient notes difficulty swallowing, denies acid reflux, denies ulcers, denies vomiting, denies jaundice/hepatitis, denies gallbladder problems, denies black or tarry stools, denies hemorrhoids, denies bleeding from rectum, denies diverticulitis, denies constipation, denies diarrhea, denies loss of stool control, and denies hernias. Kidney/Bladder: The patient denies kidney stones, denies urine infections, and denies bloody urine. Skin: The patient denies a history of skin cancer, denies bleeding/changing moles, and denies a history of skin rash. Neurologic: The patient denies a history of epilepsy/convulsions, denies headaches, denies head/spinal injuries, and denies stroke/TIA. Psychiatric: The patient denies psychiatric medications, denies depression, and denies voices, denies substance abuse. Endocrine: The patient denies thyroid disorders, denies diabetes, and denies hormonal problems. Hematologic: The patient denies a history of bruising, denies bleeding, and denies anemia, denies blood clots. Infections: The patient denies a history of measles and mumps, denies rheumatic fever, and denies sexually transmitted diseases. Musculoskeletal: The patient denies back pain/injury, denies back problems, denies sciatica, denies knee/foot trouble, denies arthritis, or denies gout. When was patient's last Mammogram screening? 08/2017 Last Colonoscopy: no Asha Asif RN EMERGENCY DEPARTMENT Observed: 01/27/2018 Status: F Source: [facility] SUMMARY 6:09 PM [facility] REPOSITORY [facility] Medical Records Department [address] [place] [address] Emergency Department Summary 01/24/18 0003 MR#: [id number] Acct: [id number] Name: NETTE PISANO Rep #: [id number] : 1965 52 From: Eula Thrasher MD PCP: Sancho Verma MD Status: DEP ER - ER Visit Summary Date of Service: 01/24/18 Chief Complaint: Food impaction History of Present Illness: The patient is a 52 F who was eating steak for lunch today. Patient feels like a piece of steak got stuck. She has not been able to tolerate p.o. since that time. She ate lunch around 1230 this afternoon. Patient presents at 830 with continued symptoms. She states she has had similar episodes in the past but so has been able to vomit up the blockage and is never required scope. Physical Examination: Vital signs are unremarkable. Patient sitting upright in bed. She speaking full sentences. She [facility] and spit frequently. Head neck examination is unremarkable. Heart is regular rate and rhythm. Lung sounds are clear. Abdomen is soft nontender. Test Results: [] Emergency Department Course and Treatment: Patient was given IV glucagon with no significant improvement in her symptoms. Dr. Alamo presented to the emergency room. Patient was consented for procedural sedation and EGD. A total of 80 mg of IV propofol was given for sedation. The food bolus was pushed into the stomach by Dr. Alamo. At this time patient is awake and alert. She is able tolerate p.o. fluids without difficulty. Treatment Plan: [] Disposition: Discharge Impression: 1. Food bolus to esophagus 2. Procedural sedation by ED physician and EGD by surgeon This note was generated with [employer] dictation software. It may contain incorrect words, spelling, and punctuation that were not noted in review of the chart prior to signing ED Disposition - Plan for ED Patient: Disposition: Home or Assisted Living Chief Complaint: Foreign Body Instructions: ED Foreign Body Esophageal Rslv Referrals: Ezra Verma MD [Primary Care Provider] - As Needed What to do if you have Problems For any increased pain, shortness of breath, bleeding, nausea or vomiting, chest pain, or any unexpected problems, contact your Primary Care Provider. Call [facility] ([phone]) or report to the closest Emergency Room. Call 911 if necessary. 01/27/18 1809 <Electronically signed by Eula Thrasher MD> Date Eula Thrasher MD Cosigner Signature (If Indicated): Date CC: Sancho Verma MD PROGRESS Observed: 01/25/2018 Status: COMPLETED Source: [place] 10:41 AM [facility] REPOSITORY HNO ID: [id number] Author: Roque Carey Service: (none) Author Type: Physician Type: Progress Notes Filed: 01/25/2018 10:43 AM Note Text: OPERATIVE NOTATION FOR [facility] SURGICAL PROCEDURE. January 23, 2018 Nette Pisano 1965 [id number] female PROCEDURE: EGD WITH REMOVAL OF FOREIGN BODY - 66201- SURGEON: Cori Carey M.D. FACS SONG PLUGGER: None DEPT: WQ PROVIDER: [id number] Carey MD POS: [id number] DIAGNOSIS: (T18.108A) Esophageal foreign body, initial encounter (primary encounter diagnosis) ASA CLASS: 2E - mild emergency FINDINGS: COMPLICATIONS: None PMHx - PAST MEDICAL HISTORY Diagnosis Date - Cervicitis and endocervicitis 09/16/06 cerivcal inflammation on biopsy done for ascus pap - Human papillomavirus in conditions classified elsewhere and of unspecified site 08/26/06 - Papanicolaou smear of cervix with atypical squamous cells of undetermined significance (ASC-US) 08/26/06 - past abnormal mammograms nothing significant found. COMORBIDITIES - None Post Op Occurrences - None Wound Classification - Clean Contaminated Operative note dictated in the [facility] dictation system. Roque Carey MD OPERATIVE REPORT Observed: 01/24/2018 Status: F Source: [facility] 9:08 [facility] REPOSITORY [facility] Medical Records Department [address] [place] [address] Operative Report 01/23/18 2348 MR#: [id number] Acct: [id number] Name: NETET PISANO Rep #: [id number] : 1965 52 From: Roque Carey MD PCP: Sancho Verma MD Status: DEP ER Y Location: ED Report of Operation Date of Procedure: 01/23/18 Pre-Operative Diagnosis: esophageal foreign body Post-Operative Diagnosis: esophageal foreign body Surgery/Procedure Performed:: EGD removal of esophageal foreign body educational program director: None Type of Anesthesia:: Sedation,Conscious Specimen's removed: none Description of Procedure: The patient was brought to the trauma resuscitation room in the emergency department. Sign in was performed verifying patient, site, planned procedure, critical nursing information, the patient was monitored with cardiac, pulse oximetric, EKG and blood pressure monitoring devices, sedation was provided by the emergency room physician using propofol. Following IV sedation and after the oropharynx was sprayed with Cetacaine spray, a video gastroscope was inserted in the oropharynx and advanced down the esophagus without difficulty. The scope encounter any significant food bolus in the distal esophagus. This was removed in piecemeal fashion with both a Gannon net and/or grasper. After removing multiple pieces of the foreign body in the above fashion, the foreign body was able to be gently passed into the stomach with pressure from the scope. The stomach was visualized unremarkable area did as the gastroscope was removed, the esophagus demonstrated irritation, both from the food bolus and from attempts to remove it without significant deep injury. The patient tolerated the procedure well and was maintained in the trauma bay in stable condition 01/24/18 0908 <Electronically signed by Roque Carey MD> Date Roque Carey MD CC: Sancho Verma MD; Alex Jules DO; Roque Carey MD Signed CONSULTATION Observed: 01/24/2018 Status: F Source: [facility] [place] 9:[address] [facility] Medical Records Department [address] [place] [address] Consultation 01/23/18 2346 MR#: [id number] Acct: [id number] Name: NETTE PISANO Rep #: [id number] : 1965 52 From: Roque Carey MD PCP: Sancho Verma MD Status: [facility] Y Location: ED Reason for Consult Date of Consultation: 01/23/18 History of Present Illness: The patient is a 52 year old F with an esophageal foreign body. She was eating steak at lunch time. She has had the sensation of an esophageal foreign body since noon. is noticed previous episodes that have been not quite as severe, but has had occasional issues with solid food sticking in her esophagus. She has never had upper endoscopy Past Medical History Allergies No Known Allergies Allergy (Verified 01/23/18 20:16) Home Medications: Ambulatory Orders Medication Instructions Recorded NK [NK] 01/23/18 Surgical History: no surgical history Smoking Status: Never smoker Review of Systems Constitutional: Denies: Chills, Fever, Weight Change HEENT: Reports: Difficulty Swallowing, Dysphasia. Denies: Head Aches, Sinus Congestion, Sinus Drainage Cardiovascular: Denies: Chest Pain, Palpitations Respiratory: Denies: Cough, Shortness of breath at rest, Sputum production Gastrointestinal: Denies: Abdominal Pain, Nausea, Vomiting Genitourinary: Denies: Dysuria Musculoskeletal: Denies: Joint Pain, Joint Tenderness Skin: Denies: Rash, Wounds Neurological: Denies: Numbness, Tingling, Focal weakness Psychiatric: Denies: Anxiety, Depression, Homicidal Ideations, Suicidal Ideations Hematologic/ Lymphatic: Denies: Easy Bruising, Easy Bleeding - Physical Exam General: Alert, Oriented x3, Cooperative HEENT: Atraumatic, PERRLA, EOMI, Normocephalic Neck: Supple, No JVD, Negative Carotid Bruits Lungs: Clear to auscultation, Normal air movement Cardiovascular: Regular rate, No murmurs Abdomen: Bowel Sounds Present, Soft, Non Tender Extremities: No edema, Capillary Refill Less than 3 Seconds Skin: No rashes, No breakdown Musculoskeletal: No Tenderness to Palpation of Joints or Extremities Neurological: Cranial nerves II-XII grossly intact Psych/Mental Status: Normal Affect, Appropriate Vital Signs Temp Pulse Resp BP Pulse Ox 97.7 F L 63 15 124/87 H 100 01/23/18 20:16 01/23/18 23:09 01/23/18 23:09 01/23/18 23:09 01/23/18 23:09 Oxygen Delivery Method Room Air Weight: 75.8 kg Body Mass Index (BMI) 29.6 Assessment/Plan Esophageal foreign body-removed the patient try the procedure well, and this was a relatively small piece of meat which after 2 attempts at removal with a Gannon net was able to be passed from the stomach relatively easily. The patient is being discharged from the immersed department with recommendations to return immediately if she notes any chest pain, fever or differential worsening difficulty swallowing. Otherwise, I recommended she contact my office earlier this week with plans for follow-up endoscopy in 2-4 weeks to assess for esophageal stricture or eosinophilic esophagitis. 01/24/18 09 <Electronically signed by Roque Carey MD> Date Roque Carey MD Cosigner Signature (if applicable): Date CC: Sancho Verma MD; Alex Jules DO Signed DISCHARGE INSTRUCTION Observed: 01/24/2018 Status: F Source: [place] 12:06 AM [facility] REPOSITORY [facility] Medical Records Department [address] [place] [address] Discharge Instruction 01/24/18 0005 MR#: [id number] Acct: [id number] Name: NETTE PISANO Rep #: [id number] : 1965 52 From: Eula Thrasher MD PCP: Sancho Verma MD Status: REG ER ED Disposition - Plan for ED Patient: Disposition: Home or Assisted Living Chief Complaint: Foreign Body Instructions: ED Foreign Body Esophageal Rslv Referrals: Ezra Verma MD [Primary Care Provider] - As Needed What to do if you have Problems For any increased pain, shortness of breath, bleeding, nausea or vomiting, chest pain, or any unexpected problems, contact your Primary Care Provider. Call [facility] ([phone]) or report to the closest Emergency Room. Call 911 if necessary. 01/24/18 0006 <Electronically signed by Eula Thrasher MD> Date Eula Thrasher MD Cosigner Signature (If Indicated): Date CC: Sancho Verma MD CNOP Observed: 01/23/2018 Status: COMPLETED Source: [place] 12:00 AM [facility] REPOSITORY Operative Note (Enc) (GENSWS) Progress Notes: Roque Carey MD 01/25/2018 10:43 AM Signed OPERATIVE NOTATION FOR [facility] SURGICAL PROCEDURE. January 23, 2018 Nette Pisano 1965 [id number] female PROCEDURE: EGD WITH REMOVAL OF FOREIGN BODY - 00889- SURGEON: Cori Carey M.D. FACS SONG PLUGGER: None DEPT: W PROVIDER: [id number] Carey MD POS: [id number] DIAGNOSIS: (T18.108A) Esophageal foreign body, initial encounter (primary encounter diagnosis) ASA CLASS: 2E - mild emergency FINDINGS: COMPLICATIONS: None PMHx - PAST MEDICAL HISTORY Diagnosis Date - Cervicitis and endocervicitis 09/16/06 cerivcal inflammation on biopsy done for ascus pap - Human papillomavirus in conditions classified elsewhere and of unspecified site 08/26/06 - Papanicolaou smear of cervix with atypical squamous cells of undetermined significance (ASC-US) 08/26/06 - past abnormal mammograms nothing significant found. COMORBIDITIES - None Post Op Occurrences - None Wound Classification - Clean Contaminated Operative note dictated in the [facility] dictation system. Roque Carey MD Encounter Status:Closed by ROQUE CAREY MD on 01/25/18 SCREENING MAMM (CAD), Observed: 08/29/2017 Status: F Source: [facility] 11:45 AM [facility] REPOSITORY [facility] Imaging Services [address] [place] [address] SCREENING MAMM (CAD), BILAT MR#: [id number] Acct: [id number] Name: NETTE PISANO Rep #: [id number] : 1965 F 51 From: Jakub Davis MD PCP: Sancho Verma MD Status: REG CLI Study: SCREENING MAMM (CAD), BILAT Date of Exam: 08/29/17 Exam# [id number] Ordering Dr: Pedro Bowman MD MAMMOGRAPHY - BILATERAL SCREENING REASON FOR EXAM: Female, 52 years old. Routine annual screening examination. PERTINENT HISTORY: Non-contributory. TECHNIQUE: Digital bilateral breast ayush (3D mammographic acquisition) in the CC and MLO projections. 2-D mediolateral oblique (MLO) and craniocaudad (CC) views of both breasts were obtained. CAD: Full Field Digital Mammography with Computer Added Detection was performed. COMPARISON: Comparison is made with prior outside examination dated November 21, 2015. FINDINGS: Breast Composition: The breasts are heterogeneously dense, which may obscure small masses. There are no dominant masses or suspicious calcifications. No other significant abnormalities are identified. There has been no significant change since the prior study. HPBI/SCREENING MAMM (CAD), BILAT IMPRESSION: Stable bilateral screening mammogram. Yearly follow-up mammogram recommended. (A) ASSESSMENT CATEGORY: BIRADS Category 1: Negative. A letter regarding these results will be sent to the patient by the facility within 30 days. Approximately 10% of breast cancers are not detected by mammography. A normal mammogram should not delay biopsy of a clinically suspicious abnormality. [id number] Electronically Signed: Jakub Davis MD at 10:24 EST Tel [phone], Service support , CC: Sancho Verma MD; Pedro Bowman MD Joint Setter: Signed ALLERGIES ALLERGIES DATE TYPE / CODE NAME / CODE REACTION SEVERITY SOURCE 01/23/2018 Drug No Known Unknown Nancy Allergy/416 Allergies/[id number] [facility] [id number](SNOM 388(RXNORM) Hospital ED CT) Repository 08/26/2006 DRUG CEPHALEXIN RASH [facility]I/[address] [place] [address](SN Repository ED CT) ENCOUNTERS ENCOUNTERS ADMIT/DISCHARGE ACCOUNT ADMITTING ENCOUNTER LOCATION SOURCE NUMBER CLASS 07/20/2018 [id number] Ambulatory [facility] ing:LABSPEC [id number]30[facility]2018[facility]02/06/20 [id number] Ambulatory [address] Repository 01/23/2018/01/25/20 [id number] Emergency [address] ing:ED Repository 08/29/2017 [id number] Ambulatory [facility] ing:BI Repository PAYERS PAYERS ENCOUNTER GUARANTOR PAYER SUBSCRIBER SOURCE 07/20/2018 NETTE R [id number] Primary NETTE R HUTHDOB: Nancy MEE [id number] Hospital [id number]: 330 [id number] Repository [phone] () Date:[id number] [address], [place] [address]ZW: 07/20/2018 Secondary NOT GIVENUNK [place] Insurance:SELF PAY [facility] Number: Effective Repository Date:2018-07-20 01/23/2018 NETTE R [id number] Primary NETTE R HUTHDOB: Nancy MEE Insurance[id number] Hospital [id number]: (330 [id number] Repository [phone] () Date:[id number] [address], [place] [address]TZ: 01/23/2018 Secondary NOT GIVENUNK Nancy Insurance:SELF PAY [facility] Number: Effective Repository Date:2018-01-23 08/29/2017 NETTE R [id number] Primary NETTE R HUTHDOB: Nancy MEE Insurance[id number] Number[place] Hospital [address]Jyy: (330 [id number] Repository [phone] () Date:[id number] [address] [address]AX: 08/29/2017 Secondary NOT GIVENUNK [place] Insurance:SELF PAY [facility] Number: Effective Repository Date:2017-07-22
== END ==
PROVIDERS: Visit Provider Obstetrics & Gynecology
DX: Z12.4 Encounter for screening for malignant neoplasm of cervix (principal)
CPT/HCPCS: 87624; 88175; G0145

== ENCOUNTER → 2018-09-01 07:51 | Outpatient (CLI) | payer BC, SELFPAY ==
--- NOTE | 2018-09-01 07:56 | BI_ITS ---
MAMMOGRAPHY - BILATERAL SCREENING REASON FOR EXAM: Female, 53 years old. Routine annual screening examination. PERTINENT HISTORY: Non-contributory. TECHNIQUE: Digital bilateral breast ayush (3D mammographic acquisition) in the CC and MLO projections. 2-D mediolateral oblique (MLO) and craniocaudad (CC) views of both breasts were obtained. CAD: Full Field Digital Mammography with Computer Added Detection was performed. COMPARISON: Comparison is made with prior study dated August 29, 2017 and November 21, 2015. FINDINGS: Breast Composition: The breasts are heterogeneously dense, which may obscure small masses. There are no dominant masses or suspicious calcifications. No other significant abnormalities are identified. There has been no significant change since the prior study. BI/SCREENING MAMM (CAD), BILAT IMPRESSION: Stable bilateral screening mammogram. Yearly follow-up mammogram recommended. (A) ASSESSMENT CATEGORY: BIRADS Category 1: Negative. A letter regarding these results will be sent to the patient by the facility within 30 days. Approximately 10% of breast cancers are not detected by mammography. A normal mammogram should not delay biopsy of a clinically suspicious abnormality. [id number] Electronically Signed: Jakub Davis MD at 12:50 EST , Service support ,
== END ==
PROVIDERS: Referring Provider Obstetrics & Gynecology; Visit Provider Obstetrics & Gynecology
DX: Z12.31 Encounter for screening mammogram for malignant neoplasm of breast (principal)
CPT/HCPCS: 77063; 77067

== ENCOUNTER → 2020-01-06 09:59 | Outpatient (CLI) | payer OTHER, SELFPAY ==
[2020-01-06 13:10] LABS: Anion Gap 6 (5-15); BUN 12 mg/dL (7-18); BUN/Creat Ratio 12.4 RATIO (10-20); Calcium,Total 9.4 mg/dL (8.5-10.1); Chloride 106 mmol/L (98-107); Cholesterol 212 mg/dL (200); Creatinine, Serum 0.96 mg/dL (0.55-1.02); EST Glomerular Filtration Rate 65 mL/min (>60); Est Glom Filt Rate - Afr Amer 78 mL/min (>60); Glucose 103 mg/dL (74-106); High Density Lipoprotein 53 mg/dL; Potassium 4.3 mmol/L (3.5-5.1); Sodium Level 140 mmol/L (136-145); Thyroid Stim Hormone (TSH) 3.69 uIU/mL (0.358-3.74); Triglycerides 211 mg/dL; Very Low Density Lipoprotein 42 mg/dL (5-40)
== END ==
PROVIDERS: Visit Provider Family Medicine
DX: Z00.00 Encounter for general adult medical examination without abnormal findings (principal)
CPT/HCPCS: 36415; 80048; 80061; 84443

== ENCOUNTER → 2021-06-12 16:30 | Outpatient (CLI) | payer OTHER, SELFPAY ==
--- NOTE | 2021-06-12 16:32 | BI_ITS ---
MAMMOGRAPHY - BILATERAL SCREENING REASON FOR EXAM: Female, 55 years old. Routine annual screening examination. PERTINENT HISTORY: Non-contributory. TECHNIQUE: Digital bilateral breast esteban (3D mammographic acquisition) in the CC and MLO projections. 2-D mediolateral oblique (MLO) and craniocaudad (CC) views of both breasts were obtained. CAD: Full Field Digital Mammography with Computer Added Detection was performed. COMPARISON: Comparison is made with prior study dated 09/01/2018 and 08/29/2017. FINDINGS: Breast Composition: The breasts are heterogeneously dense, which may obscure small masses. There are no dominant masses or suspicious calcifications. No other significant abnormalities are identified. There has been no significant change since the prior study. BI/SCRN MAMM (CAD)W/ESTEBAN BILAT IMPRESSION: Stable bilateral screening mammogram. Yearly follow-up mammogram recommended. (A) ASSESSMENT CATEGORY: BIRADS Category 1: Negative. A letter regarding these results will be sent to the patient by the facility within 30 days. Approximately 10% of breast cancers are not detected by mammography. A normal mammogram should not delay biopsy of a clinically suspicious abnormality. [id number] Electronically Signed: Jakub Davis MD at 8:25 EST , Service support ,
== END ==
PROVIDERS: PCP Family Medicine; Referring Provider Obstetrics & Gynecology; Visit Provider Obstetrics & Gynecology
DX: Z12.31 Encounter for screening mammogram for malignant neoplasm of breast (principal)
CPT/HCPCS: 77063; 77067

== ENCOUNTER 2021-11-16 09:34 | Outpatient (CLI) | payer OTHER, SELFPAY ==
[2021-11-16 11:57] LABS: Absolute Lymphocyte Count 3.14 X10^3/uL (0.83-4.51); Absolute Neutrophil Count 4.1 X10^3/uL (2.0-7.7); Basophil# 0.07 X10^3/uL; Basophil% 0.9 % (0-1); Eosinophil# 0.16 X10^3/uL; Hematocrit 39.3 % (37-47); Hemoglobin 13.8 g/dL (12.0-15.0); Lymphocyte # 3.14 X10^3/ul (0.83-4.51); Lymphocyte % 38.7 % (19-41); Mean Corp Hgb Conc 35.1 g/dL (32-36); Mean Corpuscular Hgb 30.9 pg (27.0-32.0); Mean Corpuscular Volume 87.9 fL (81-99); Mean Platelet Vol. 11.1 fl (6.2-12.0); Monocyte# 0.58 X10^3/uL; Monocyte% 7.2 % (0-10); NRBC Flagged by Analyzer 0 % (0-5); Neutrophil # 4.14 X10^3/uL (2.7-7.7); Platelet Count 285 K/mm3 (150-450); RBC Distribution Width CV 11.8 % (11.6-14.6); RBC Distribution Width SD 37.7 fl (35.1-43.9); Red Blood Count 4.47 M/mm3 (4.2-5.4); White Blood Count 8.1 K/mm3 (4.4-11.0)
[2021-11-16 12:19] LABS: Vitamin B12 383 pg/mL (211-911)
[2021-11-16 12:31] LABS: Anion Gap 4 (5-15); BUN 18 mg/dL (7-18); Calcium,Total 9.2 mg/dL (8.5-10.1); Chloride 107 mmol/L (98-107); Creatinine, Serum 0.95 mg/dL (0.55-1.02); EST Glomerular Filtration Rate 65 mL/min (>60); Est Glom Filt Rate - Afr Amer 79 mL/min (>60); Glucose 99 mg/dL (74-106); Potassium 4.2 mmol/L (3.5-5.1); Sodium Level 138 mmol/L (136-145); Thyroid Stim Hormone (TSH) 4.26 uIU/mL (0.358-3.74)
== END 2021-11-16 23:59 | disposition home or self-care (01) ==
LOC: MFPLAB 09:35
PROVIDERS: PCP Family Medicine; Referring Provider Family Medicine; Visit Provider Nurse Practitioner Family
DX: R09.89 Other specified symptoms and signs involving the circulatory and respiratory systems (principal); K14.9 Disease of tongue, unspecified
CPT/HCPCS: 36415; 80048; 82607; 82746; 84443; 85025

== ENCOUNTER 2021-11-22 09:03 | Outpatient (CLI) | payer OTHER, SELFPAY | END 2021-11-22 23:59 | disposition home or self-care (01) | LOC: MFPLAB 09:05 | PROVIDERS: PCP Family Medicine; Referring Provider Family Medicine; Visit Provider Nurse Practitioner Family | DX: R79.89 Other specified abnormal findings of blood chemistry (principal) | CPT/HCPCS: 36415; 84439 ==

== ENCOUNTER → 2022-01-01 | Outpatient (CLI) | payer OTHER, SELFPAY ==
[2022-01-01 18:26] LABS: T4 Free Direct 1.05 ng/dL (0.76-1.46); Thyroid Stim Hormone (TSH) 3.26 uIU/mL (0.358-3.74)
== END | disposition home or self-care (01) ==
LOC: MFPLAB 15:06
PROVIDERS: Nurse Practitioner Family; PCP Family Medicine; Visit Provider Family Medicine
DX: E03.8 Other specified hypothyroidism (principal)
CPT/HCPCS: 36415; 84439; 84443

== ENCOUNTER → 2022-01-29 | Outpatient (CLI) | payer OTHER, SELFPAY ==
--- NOTE | 2022-01-29 08:04 | RAD_ITS ---
STUDY: X-RAY - ESOPHAGUS (BARIUM SWALLOW) WITH FLUOROSCOPY REASON FOR EXAM: Female, 56 years old. DYSPHAGIA TECHNIQUE: 18 view(s) of the esophagus were obtained following swallowing of barium. FLUOROSCOPY TIME (if supplied): (23 seconds) minutes/seconds COMPARISON: None. FINDINGS: There is no demonstrated esophageal foreign body. There is no demonstrated stricture or mucosal abnormality. Normal gastroesophageal junction, without a demonstrated hiatal hernia. The patient ingested a 12 mm tablet of barium without any difficulty. Normal visualized aortic arch and descending thoracic aorta. Normal visualized pulmonary parenchyma. Normal visualized osseous structures of the thorax. RAD/Esophagus Dual Contrast IMPRESSION: Normal plain film x-ray examination (barium swallow) of the esophagus. Electronically Signed: Jakub Davis MD at 9:17 EDT ,
== END | disposition home or self-care (01) ==
LOC: RAD 08:03
PROVIDERS: PCP Family Medicine; Referring Provider Internal Medicine Gastroenterology; Visit Provider Internal Medicine Gastroenterology
DX: R13.10 Dysphagia, unspecified (principal)
CPT/HCPCS: 74221

== ENCOUNTER → 2022-03-29 | Outpatient (CLI) | payer OTHER, SELFPAY ==
[2022-03-29 10:46] LABS: T4 Free Direct 1.09 ng/dL (0.76-1.46); Vitamin B12 859 pg/mL (211-911)
== END | disposition home or self-care (01) ==
LOC: MFPLAB 08:35
PROVIDERS: PCP Family Medicine; Referring Provider Family Medicine; Visit Provider Family Medicine
DX: E03.8 Other specified hypothyroidism (principal); E53.8 Deficiency of other specified B group vitamins
CPT/HCPCS: 36415; 82607; 84439; 84443

== ENCOUNTER → 2022-07-25 | Outpatient (CLI) | payer OTHER, SELFPAY ==
--- NOTE | 2022-07-25 07:46 | BI_ITS ---
MAMMOGRAPHY - BILATERAL SCREENING REASON FOR EXAM: Female, 56 years old. Routine annual screening examination. PERTINENT HISTORY: Non-contributory. TECHNIQUE: Digital bilateral breast esteban (3D mammographic acquisition) in the CC and MLO projections. 2-D mediolateral oblique (MLO) and craniocaudad (CC) views of both breasts were obtained. CAD: Full Field Digital Mammography with Computer Added Detection was performed. COMPARISON: Comparison is made with prior examination of 06/12/2021 and 09/01/2018. FINDINGS: Breast Composition: The breasts are heterogeneously dense, which may obscure small masses. There are no dominant masses or suspicious calcifications. No other significant abnormalities are identified. There has been no significant change since the prior study. BI/SCRN MAMM (CAD)W/ESTEBAN BILAT IMPRESSION: Stable bilateral screening mammogram. Yearly follow-up mammogram recommended. (A) ASSESSMENT CATEGORY: BIRADS Category 1: Negative. A letter regarding these results will be sent to the patient by the facility within 30 days. Approximately 10% of breast cancers are not detected by mammography. A normal mammogram should not delay biopsy of a clinically suspicious abnormality. [id number] Electronically Signed: Jakub Davis MD at 8:46 EST ,
== END | disposition home or self-care (01) ==
LOC: OPBI 07:44
PROVIDERS: PCP Family Medicine; Referring Provider Obstetrics & Gynecology; Visit Provider Obstetrics & Gynecology
DX: Z12.31 Encounter for screening mammogram for malignant neoplasm of breast (principal)
CPT/HCPCS: 77063; 77067

== ENCOUNTER → 2022-11-08 | Outpatient (CLI) | payer OTHER, SELFPAY ==
[2022-11-08 10:39] LABS: Vitamin B12 831 pg/mL (211-911)
[2022-11-08 10:49] LABS: Cholesterol 207 mg/dL (200); High Density Lipoprotein 52 mg/dL; T4 Free Direct 0.91 ng/dL (0.76-1.46); Thyroid Stim Hormone (TSH) 2.04 uIU/mL (0.358-3.74); Triglycerides 177 mg/dL; Very Low Density Lipoprotein 35 mg/dL (5-40)
== END | disposition home or self-care (01) ==
LOC: MFPLAB 08:47
PROVIDERS: Nurse Practitioner Family; PCP Family Medicine; Referring Provider Family Medicine; Visit Provider Family Medicine
DX: Z13.220 Encounter for screening for lipoid disorders (principal); E53.8 Deficiency of other specified B group vitamins; E03.8 Other specified hypothyroidism
CPT/HCPCS: 36415; 80061; 82607; 84439; 84443

== ENCOUNTER → 2023-01-15 | Outpatient (CLI) | payer OTHER, SELFPAY ==
[2023-01-15 11:13] LABS: T4 Free Direct 1.15 ng/dL (0.76-1.46); Thyroid Stim Hormone (TSH) 1.27 uIU/mL (0.358-3.74)
== END | disposition home or self-care (01) ==
LOC: MFPLAB 09:23
PROVIDERS: PCP Family Medicine; Visit Provider Family Medicine
DX: E03.9 Hypothyroidism, unspecified (principal)
CPT/HCPCS: 36415; 84439; 84443

== ENCOUNTER → 2023-05-23 | Outpatient (CLI) | payer OTHER, SELFPAY ==
[2023-05-23 10:47] LABS: T4 Free Direct 1.58 ng/dL (0.76-1.46); Thyroid Stim Hormone (TSH) 0.01 uIU/mL (0.358-3.74)
== END | disposition home or self-care (01) ==
LOC: MTLAB 08:39
PROVIDERS: PCP Family Medicine; Referring Provider Family Medicine; Visit Provider Family Medicine
DX: E03.9 Hypothyroidism, unspecified (principal)
CPT/HCPCS: 36415; 84439; 84443

== ENCOUNTER → 2023-06-12 | Outpatient (CLI) | payer OTHER, SELFPAY | END | disposition home or self-care (01) | LOC: LABSPEC 15:14 | PROVIDERS: PCP Family Medicine; Referring Provider Family Medicine; Visit Provider Family Medicine | DX: L02.215 Cutaneous abscess of perineum (principal) | CPT/HCPCS: 87070; 87077; 87186; 87205 ==

== ENCOUNTER → 2023-08-22 | Outpatient (CLI) | payer OTHER, SELFPAY ==
--- OUTSIDE RECORDS SUMMARY | 2023-08-22 09:14 | XMS RPT_ITS | CCD ---
Author Name Unknown Address [address] [place] [address] Organization [facility] Care Team Providers Care Cold Header Name Role Phone LINETTE CAREY Unavailable Unavailable LINETTE CAREY Unavailable Unavailable LINETTE CAREY Unavailable Unavailable GLEN ABREU (LEXY) Unavailable Unavailable DEEJAY MARSHALL, DR ARIZMENDI Attending Unavailabl e Allergies Allergy Classification Reported Allergen(s) Allergy Type Date of Onset Reaction(s) Facility (1 source) cephalexin; Translations: [CEPHALEXIN] Drug Allergy 08-26-2006 [facility] Repository Medications Current Medications Medication Drug Class(es) Dates Sig (Normalized) Sig (Original) biotin 10 mg oral tablet (1 source) Start: 07-11-2023 biotin 10 mg oral tablet Dose : 10 mg = 1 tab(s), Oral, qDay, # 30 tab(s), 0 Refill(s) Start Date: 07/11/23 Status: Ordered levocetirizine dihydrochloride 5 mg oral tablet (2 sources) Histamine-1 Receptor Antagonist Start: 03-15-2022 Xyzal 5 mg oral tablet Dose : 5 mg = 1 tab(s), Oral, qPM, 0 Refill(s) Start Date: 03/15/22 Status: Ordered levothyroxine sodium 0.05 mg oral tablet (4 sources) l-Thyroxine Start: 03-15-2022 Euthyrox 50 mcg (0.05 mg) oral tablet 0 Refill(s) Start Date: 03/15/22 Status: Ordered magnesium sulfate 225 MG / potassium chloride 188 MG / sodium sulfate 1479 MG Oral Tablet [Sutab] (1 source) Start: 07-11-2023 Sutab oral tablet USE DIRECTED FOR BOWEL PREPARATION Start Date: 07/11/23 Status: Ordered omeprazole 40 mg delayed release oral capsule (1 source) Proton Pump Inhibitor Start: 07-11-2023 omeprazole 40 mg oral delayed release capsule Dose : 40 mg = 1 cap(s), Oral, qDay, # 30 cap(s), 0 Refill(s) Start Date: 07/11/23 Status: Ordered pantoprazole 40 mg delayed release oral tablet (1 source) Proton Pump Inhibitor Start: 03-15-2022 pantoprazole 40 mg oral enteric coated tablet Dose : 40 mg = 1 tab(s), Oral, qDayAC, 0 Refill(s) Start Date: 03/15/22 Status: Ordered vitamin B12 (2 sources) Vitamin B12 Start: 03-15-2022 Vitamin B12 0 Refill(s) Start Date: 03/15/22 Status: Ordered Problems Problem Classification Problem Date Documented Da te Episodic/Chronic Other injuries and conditions due to external causes (1 source) Unspecified foreign body in esophagus causing other injury, initial encounter; Translations: [Unspecified foreign body in esophagus causing other injury, initial encounter] Onset: 02-06-2018 Results Test Name Value Interpretation Reference Range Facil ity Vital Signs Date Time Vital Sign Value Performing Clinician Faci lit 07-11-2023 09:24-0500 Diastolic Blood Pressure Non-Invasive 78 mm[Hg] DR UGO VILLALBA MD [facility] 07-11-2023 09:24-0500 Heart rate 64 /min DR UGO VILLALBA MD [facility] 07-11-2023 09:24-0500 Respiratory rate 15 /min DR UGO VILLALBA MD [facility] 07-11-2023 09:24-0500 Systolic Blood Pressure Non-Invasive 126 mm[Hg] DR UGO VILLALBA MD [facility] 07-11-2023 09:19-0500 Diastolic Blood Pressure Non-Invasive 75 mm[Hg] DR UGO VILLALBA MD [facility] 07-11-2023 09:19-0500 Heart rate 76 /min DR UGO VILLALBA MD [facility] 07-11-2023 09:19-0500 Respiratory rate 19 /min DR UGO VILLALBA MD [facility] 07-11-2023 09:19-0500 Systolic Blood Pressure Non-Invasive 131 mm[Hg] DR UGO VILLALBA MD [facility] 07-11-2023 09:14-0500 Diastolic Blood Pressure Non-Invasive 75 mm[Hg] DR UGO VILLALBA MD [facility] 07-11-2023 09:14-0500 Heart rate 72 /min DR UGO VILLALBA MD [facility] 07-11-2023 09:14-0500 Respiratory rate 23 /min DR UGO VILLALBA MD [facility] 07-11-2023 09:14-0500 Systolic Blood Pressure Non-Invasive 110 mm[Hg] DR UGO IVLLALBA MD [facility] 07-11-2023 09:05-0500 Respiratory Rate - Anes 21 br/min DR UGO VILLALBA MD [facility] 07-11-2023 09:00-0500 Respiratory Rate - Anes 22 br/min DR UGO VILLALBA MD [facility] 07-11-2023 08:55-0500 Respiratory Rate - Anes 19 br/min DR UGO VILALLBA MD [facility] 07-11-2023 07:53-0500 Blood Pressure Cuff Size DR UGO VILLALBA MD [facility] 07-11-2023 07:53-[address] UGO VILLALBA MD [facility] 07-11-2023 07:53-[address] UGO VILLALBA MD [facility] 07-11-2023 07:53-0500 Body height [address] UGO VILLALBA MD [facility] 07-11-2023 07:53-0500 Body temperature 97.7 [degF] DR UGO VILLALBA MD [facility] 07-11-2023 07:53-0500 Body weight 77.[address] UGO VILLALBA MD [facility] 07-11-2023 07:53-0500 Body weight 29.45 kg/m2 DR UGO VILLALBA MD [facility] 07-11-2023 07:53-0500 Heart rate 72 /min DR UGO VILLALBA MD [facility] 03-15-2022 10:01-0400 Diastolic Blood Pressure NBP [address] UGO VILLALBA MD [facility] 03-15-2022 10:01-0400 Heart rate 68 /min DR UGO VILLALBA MD [facility] 03-15-2022 10:01-0400 Respiratory rate 18 /min DR UGO VILLALBA MD [facility] 03-15-2022 10:01-0400 Systolic Blood Pressure NBP [address] UGO VILLALBA MD [facility] 03-15-2022 09:54-0400 Diastolic Blood Pressure NBP [address] UGO VILLALBA MD [facility] 03-15-2022 09:54-0400 Heart rate 75 /min DR UGO VILLALBA MD [facility] 03-15-2022 09:54-0400 Respiratory rate 13 /min DR UGO VILLALBA MD [facility] 03-15-2022 09:54-0400 Systolic Blood Pressure NBP [address] UGO VILLALBA MD [facility] 03-15-2022 09:48-0400 Diastolic Blood Pressure NBP [address] UGO VILLALBA MD [facility] 03-15-2022 09:48-0400 Heart rate 77 /min DR UGO VILLALBA MD [facility] 03-15-2022 09:48-0400 Respiratory rate 15 /min DR UGO VILLALBA MD [facility] 03-15-2022 09:48-0400 Systolic Blood Pressure NBP [address] UGO VILLALBA MD [facility] 03-15-2022 08:06-0400 Body height [address] UGO VILLALBA MD [facility] 03-15-2022 08:06-0400 Body temperature 96.62 [degF] DR UGO VILLALBA MD [facility] 03-15-2022 08:06-0400 Body weight [address] UGO VILLALBA MD [facility] 03-15-2022 08:06-0400 Body weight 28.58 kg/m2 DR UGO VILLALBA MD [facility] 03-15-2022 08:06-0400 diastolic 93 mm[Hg] DR UGO VILLALBA MD [facility] 03-15-2022 08:06-0400 Heart rate 70 /min DR UGO VILLALBA MD [facility] 03-15-2022 08:06-0400 systolic 117 mm[Hg] DR UGO VILLALBA MD [facility] Encounters Encounter Date Encounter Type Care Provider Facility Start: 07-11-2023 End: 07-11-[address] UGO VILLALBA MD Facility:B Start: 07-11-2023 End: 07-11-[address] UGO VILLALBA MD [facility] Start: 03-15-2022 End: 03-15-[address] UGO VILLALBA MD [facility] Start: 02-06-2018 Patient encounter LINETTE CAREY [facility] Start: 01-30-2018 End: 02-05-2018 Patient encounter LINETTE GATICATMAN [facility] Procedures Date Procedure Procedure Detail Performing Clinician Start: 03-15-2022 Esophagogastroduodenoscopy gastric outlet reduction DR UGO VILLALBA MD Payers Date Payer Category Payer Unknown [id number] 1965 Unknown [id number] Social History Date Type Detail Facility Start: 03-15-2022 Tobacco smoking status Never s moked tobacco (finding) [facility] Sex Assigned At Sex [facility] Functional Status Date Assessment Result Facility 07-11-2023 Functional Status Maintained [facility] 03-15-2022 Functional Status More than 8 hours [facility]3] Mental Status Date Assessment Result Facility 03-15-2022 Mental Status Oriented x 4 [facility] Clinical Notes 03-15-2022 to 07-11-2023 Note Date & Type Note Facility [facility] ADMISSION HISTORY AN D PHYSICIAL CHIEF COMPLAINT: HISTORY OF PRESENT ILLNESS: REVIEW OF SYSTEMS: ACTIVE PROBLEMS: (3) Dysphagia ([id number]) GERD (gastroesophageal reflux disease) ([id number]) Hypothyroidism ([id number]) MEDICATIONS: Active Inpt Meds: None Active PRN Meds: None One Time Meds: None Active IV Meds: Lactated Ringers Infusion 1,000 mL (LR 1,000 mL) Start: 07/11/23 7:50:00 EST, Rate: 50 mL/hr, 07/11/23 7:50:00 EST ALLERGIES: (1) NKA FAMILY HISTORY: SOCIAL HISTORY: PHYSICAL EXAM: VITALS: [id number](kg) 07/11 07:5336.5--[id number]/08 77.3 24 Hr Tmax: 36.5 at 07/11 07:53 36 Hr Tmax: 36.5 at 07/11 07:53 Vital Signs are the last 5 in the past 48 hours. Weights display the last 5 within 7 days. Initial Wt: 07/11 77.3 kg 170 lb Current Wt: 07/11 77.3 kg 170 lb GENERAL: HEENT: CARDIOVASCULAR: RESPIRATORY: ABDOMEN: EXREMETIES: NEUROLOGICAL: PSYCHIATRIC: LABS: No 36hr Lab Data DIAGNOSTICS: IMPRESSION: PLAN: History and Physical Update I have examined the patient; reviewed the H&P and there are no changes to the H&P unless noted below. [facility] 12-08-2023 Hospital Discharge instructions Patient Education 07/11/2023 09:11:57 Colonoscopy, Adult, Care After Colonoscopy, Adult, Care After This sheet gives you information about how to care for yourself after your procedure. Your health care provider may also give you more specific instructions. If you have problems or questions, contact your health care provider. What can I expect after the procedure? After the procedure, it is common to have: A small amount of blood in your stool for 24 hours after the procedure. Some gas. Mild abdominal cramping or bloating. Follow these instructions at home: General instructions For the first 24 hours after the procedure: ?Do not drive or use machinery. ?Do not sign important documents. ?Do not drink alcohol. ?Do your regular daily activities at a slower pace than normal. ?Eat soft, sbfv-dc-ycjewr foods. Take qato-hfc-nucndjz or prescription medicines only as told by your health care provider. Relieving cramping and bloating Try walking around when you have cramps or feel bloated. Apply heat to your abdomen as told by your health care provider. Use a heat source that your healthcare provider recommends, such as a moist heat pack or a heating pad. ?Place a towel between your skin and the heat source. ?Leave the heat on for 20 30 minutes. ?Remove the heat if your skin turns bright red. This is especially important if you are unable to feel pain, heat, or cold. You may have a greater risk of getting burned. Eating and drinking Drink enough fluid to keep your urine pale yellow. Resume your normal diet as instructed by your health care provider. Avoid heavy or fried foods thatare hard to digest. Avoid drinking alcohol for as long as instructed by your health care provider. Contact a health care provider if: You have blood in your stool 2 3 days after the procedure. Get help right away if: You have more than a small spotting of blood in your stool. You pass large blood clots in your stool. Your abdomen is swollen. You have nausea or vomiting. You have a fever. You have increasing abdominal pain that is not relieved with medicine. Summary After the procedure, it is common to have a small amount of blood in your stool. You may also have mild abdominal cramping and bloating. For the first 24 hours after the procedure, do not drive or use machinery, sign important documents, or drink alcohol. Contact your health care provider if you have a lot of blood in your stool, nausea or vomiting, a fever, or increased abdominal pain. This information is not intended to replace advice given to you by your health care provider. Make sure you discuss any questions you have with your health care provider. Document Released: 03/04/2005 Document Revised: 05/13/2018 Document Reviewed: 10/01/2016 [employer] Patient Education 2020 [employer] 07/11/2023 09:11:51 Monitored Anesthesia Care, Care After Monitored Anesthesia Care, Care After These instructions provide you with information about caring for yourself after your procedure. Your health care provider may also give you more specific instructions. Your treatment has been plannedaccording to current medical practices, but problems sometimes occur. Call your health care provider if you have any problems or questions after your procedure. What can I expect after the procedure? After your procedure, you may: Feel sleepy for several hours. Feel clumsy and have poor balance for several hours. Feel forgetful about what happened after the procedure. Have poor judgment for several hours. Feel nauseous or vomit. Have a sore throat if you had a breathing tube during the procedure. Follow these instructions at home: For at least 24 hours after the procedure: Have a responsible adult stay with you. It is important to have someone help care for you until youare awake and alert. Rest as needed. Do not: ?Participate in activities in which you could fall or become injured. ?Drive. ?Use heavy machinery. ?Drink alcohol. ?Take sleeping pills or medicines that cause drowsiness. ?Make important decisions or sign legal documents. ?Take care of children on your own. Eating and drinking Follow the diet that is recommended by your health care provider. If you vomit, drink water, juice, or soup when you can drink without vomiting. Make sure you have little or no nausea before eating solid foods. General instructions Take fmwi-yjs-tggcmbi and prescription medicines only as told by your health care provider. If you have sleep apnea, surgery and certain medicines can increase your risk for breathing problems. Follow instructions from your health care provider about wearing your sleep device: ?Anytime you are sleeping, including during daytime naps. ?While taking prescription pain medicines, sleeping medicines, or medicines that make you drowsy. If you smoke, do not smoke without supervision. Keep all follow-up visits as told by your health care provider. This is important. Contact a health care provider if: You keep feeling nauseous or you keep vomiting. You feel light-headed. You develop a rash. You have a fever. Get help right away if: You have trouble breathing. Summary For several hours after your procedure, you may feel sleepy and have poor judgment. Have a responsible adult stay with you for at least 24 hours or until you are awake and alert. This information is not intended to replace advice given to you by your health care provider. Make sure you discuss any questions you have with your health care provider. Document Released: 11/10/2016 Document Revised: 10/19/2018 Document Reviewed: 11/10/2016 [employer] Patient Education 2020 [employer] Follow Up Care 06/19/2023 07:57:33 With:UGO VILLALBA MD Address: [address] [facility] [address] [place] [phone] When: Unknown Comments:Follow-up as needed [facility] 12-08-2023 Summary of episode note Discharge Instructions Thank you for allowing [facility] to assist you with your healthcare needs. The following is importantdischarge information regarding your hospital visit. Your Diagnosis Colonoscopy What to do next Instructions From Your Doctor Clean colonoscopy. Repeat in 10 years. Follow Up Appointments Follow Up with UGO VILLALBA MD When Why: Follow-up as needed Where: [address] [facility] [address] [place] [phone] Allergies NKA Medications Please ask your primary doctor or pharmacist before taking any other medication not listed, including over the counter drugs, herbal medications, vitamins and or supplements as they may interact withur home medications. What How Much When Instructions Last Dose Unchanged biotin (biotin 10 mg oral tablet) 1 tab(s) by mouth Once a day Unchanged cyanocobalamin (Vitamin B12) Unchanged levocetirizine (Xyzal 5 mg oral tablet) 1 tab(s) by mouth Once a day (in the evening) Unchanged levothyroxine (Euthyrox 50 mcg (0.05 mg) oral tablet) Unchanged levothyroxine (levothyroxine 50 mcg (0.05 mg) oral tablet) 1 tab(s) by mouth Once a day before a meal Unchanged magnesium sulfate/ potass Cl/ sodium sulf (Sutab oral tablet) USE DIRECTED FOR BOWEL PREPARATION Unchanged omeprazole (omeprazole 40 mg oral delayed release capsule) 1 cap by mouth Once a day Please take this list to your next doctor s visit. Bring all medications you take, including over the counter medications, herbals and other supplements with you to your doctor s visit. Patients and families are reminded to discard old lists and to update any records with all medication providers or retail pharmacies. Education Materials Colonoscopy, Adult, Care After This sheet gives you information about how to care for yourself after your procedure. Your health care provider may also give you more specific instructions. If you have problems or questions, contact your health care provider. What can I expect after the procedure? After the procedure, it is common to have: A small amount of blood in your stool for 24 hours after the procedure. Some gas. Mild abdominal cramping or bloating. Follow these instructions at home: General instructions For the first 24 hours after the procedure: ? Do not drive or use machinery. ? Do not sign important documents. ? Do not drink alcohol. ? Do your regular daily activities at a slower pace than normal. ? Eat soft, uoou-yc-ftzrrn foods. Take ucnk-wez-qtfkzqy or prescription medicines only as told by your health care provider. Relieving cramping and bloating Try walking around when you have cramps or feel bloated. Apply heat to your abdomen as told by your health care provider. Use a heat source that your healthcare provider recommends, such as a moist heat pack or a heating pad. ? Place a towel between your skin and the heat source. ? Leave the heat on for 20 30 minutes. ? Remove the heat if your skin turns bright red. This is especially important if you are unable to feel pain, heat, or cold. You may have a greater risk of getting burned. Eating and drinking Drink enough fluid to keep your urine pale yellow. Resume your normal diet as instructed by your health care provider. Avoid heavy or fried foods thatare hard to digest. Avoid drinking alcohol for as long as instructed by your health care provider. Contact a health care provider if: You have blood in your stool 2 3 days after the procedure. Get help right away if: You have more than a small spotting of blood in your stool. You pass large blood clots in your stool. Your abdomen is swollen. You have nausea or vomiting. You have a fever. You have increasing abdominal pain that is not relieved with medicine. Summary After the procedure, it is common to have a small amount of blood in your stool. You may also have mild abdominal cramping and bloating. For the first 24 hours after the procedure, do not drive or use machinery, sign important documents, or drink alcohol. Contact your health care provider if you have a lot of blood in your stool, nausea or vomiting, a fever, or increased abdominal pain. This information is not intended to replace advice given to you by your health care provider. Make sure you discuss any questions you have with your health care provider. Document Released: 03/04/2005 Document Revised: 05/13/2018 Document Reviewed: 10/01/2016 [employer] Patient Education 2020 [employer]. Monitored Anesthesia Care, Care After These instructions provide you with information about caring for yourself after your procedure. Your health care provider may also give you more specific instructions. Your treatment has been plannedaccording to current medical practices, but problems sometimes occur. Call your health care provider if you have any problems or questions after your procedure. What can I expect after the procedure? After your procedure, you may: Feel sleepy for several hours. Feel clumsy and have poor balance for several hours. Feel forgetful about what happened after the procedure. Have poor judgment for several hours. Feel nauseous or vomit. Have a sore throat if you had a breathing tube during the procedure. Follow these instructions at home: For at least 24 hours after the procedure: Have a responsible adult stay with you. It is important to have someone help care for you until youare awake and alert. Rest as needed. Do not: ? Participate in activities in which you could fall or become injured. ? Drive. ? Use heavy machinery. ? Drink alcohol. ? Take sleeping pills or medicines that cause drowsiness. ? Make important decisions or sign legal documents. ? Take care of children on your own. Eating and drinking Follow the diet that is recommended by your health care provider. If you vomit, drink water, juice, or soup when you can drink without vomiting. Make sure you have little or no nausea before eating solid foods. General instructions Take ypmt-zoy-qjkwoel and prescription medicines only as told by your health care provider. If you have sleep apnea, surgery and certain medicines can increase your risk for breathing problems. Follow instructions from your health care provider about wearing your sleep device: ? Anytime you are sleeping, including during daytime naps. ? While taking prescription pain medicines, sleeping medicines, or medicines that make you drowsy. If you smoke, do not smoke without supervision. Keep all follow-up visits as told by your health care provider. This is important. Contact a health care provider if: You keep feeling nauseous or you keep vomiting. You feel light-headed. You develop a rash. You have a fever. Get help right away if: You have trouble breathing. Summary For several hours after your procedure, you may feel sleepy and have poor judgment. Have a responsible adult stay with you for at least 24 hours or until you are awake and alert. This information is not intended to replace advice given to you by your health care provider. Make sure you discuss any questions you have with your health care provider. Document Released: 11/10/2016 Document Revised: 10/19/2018 Document Reviewed: 11/10/2016 [employer] Patient Education 2020 [employer] Additional Information VACCINATE! IT SAVES LIVES! Members of the community who have not yet received the COVID-19 vaccine and would like to receive it can visit one of [facility] vaccine clinics. There are many vaccine clinic locations within the [facility]. For locations and available times, please visit [email or web address]/. It is important to note that some COVID mobile vaccine clinics are held outdoors and may be canceled in rainy or stormy conditions. To learn more about pediatric vaccinations (ages 5-11), we invite you to visit the [facility] webpage. https://www.[employer].org/pages/0736-Rejjs-Advostinhbt-Nvkiwwofak-Jfabw-Gbx stions.htmlTo learn more about the COVID-19 vaccine, we invite you to visit the CDC website for a list of frequently asked questions.https://www.cdc.gov/coronavirus/2019-ncov/vaccines/faq.html [employer] Patient Portal Access Instructions: Stay connected with your healthcare team and access your personal medical information anytime with the [facility] Patient Portal. Please follow the directions below to create your [facility] [employer] account: 1.Access the email account you provided upon registration to the hospital/physician office.2.Look for an invitation email from [facility].3.Open the email and access the invitation link: AcceptInvitation to [employer].4.Fill in the required haley to create your account. To access your account, visit [facility]. Click the blue button labeled Access Patient Portal and then log in with the username and password that you created in the steps above. You will be able to view your test results, lab results, a summary of your visits, upcoming appointments and more. There is also a convenient messaging option where you can send secure messages to your p rovider. In addition, you will have the ability to download any documents or summaries to your computer and/or send the information securely to a physician. Remember that your healthcare information is confidential, so carefully consider who you will allowto register on the [facility] for access to your information. You can also access the [facility] on the [facility] murphy. Simply click on Patient Portal and then log into your account. If you would like to receive a full copy of your medical records, please contact the [facility] Medical Records Department by calling [phone], Friday through Friday between 8 a.m. and 4:30 p.m. HOW TO SAFELY DISPOSE OF PRESCRIPTION MEDICATIONS Please use one of the following methods to safely dispose of your unused medications. 1.Use a drug disposal kit: the drug disposal pouch allows you to safely discard your old and unuseddrugs. Ask your nurse to give you one when you are discharged.2.Visit a local take-back location: Many local pharmacies and police departments have programs that collect old and unwanted prescriptiondrugs. Call your local pharmacy or go to http://[employer]/1R3If0x to find one close to you.3.Make use of household items: Use cat litter or old coffee grounds to dispose medications if other options arenot available. Mix your drugs with these household products, seal them in an airtight container andthrow it into the garbage. Call [place]: [phone] to be sure your drugs can be disposed of in this way. Some medicines may require a different approach.4.Never flush your medications down the toilet. IF YOU HAVE BEEN PRESCRIBED AN OPIOID FOR PAIN If you have been prescribed an opioid (such as hydrocodone, oxycodone or morphine), it is critical to understand the possible side effects and risks of opioid pain medications. Even when taken as directed, opioids can have several side effects including: Tolerance, meaning you might need to take more of a medication for the same pain relief. Nausea, vomiting and/or constipation. Sleepiness, dizziness, dry mouth, confusion, depression or itching. Physical dependence, meaning you have withdrawal symptoms when a medication is stopped, can develop within a few days. KNOW YOUR RESPONSIBILITIES It is important to know exactly how much and how often to take the opioid pain medications you are prescribed. Never take opioids in higher amounts or more often than prescribed. Do not combine opioids with alcohol or other drugs that cause drowsiness, such as benzodiazepines, also known as benzos, including diazepam and alprazolam, muscle relaxants or sleep aids. Never sell or share prescription opioids. This is illegal. Store opioids in a secure place and out of reach of others (including children, family, friends and visitors). The last page of this document has been signed and retained as a CHART COPY. Signatures Patient Education Materials Colonoscopy, Adult, Care After Monitored Anesthesia Care, Care After Medication Leaflets My discharge plan and instructions have been reviewed and explained to me and I,HIGINIO LLAMAS understand my current condition and have read and understand these discharge instructions. I have received awritten copy of the plan/instructions. If I have questions, I am aware that I should contact my doctor. 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 Family's history: negative. Review of Systems Ear/Nose/Mouth/Throat: Negative except as documented in history of present illness. Respiratory: Negative except as documented in history of present illness. Cardiovascular: Negative except as documented in history of present illness. Gastrointestinal: Negative except as documented in history of present illness. Genitourinary: Negative except as documented in history of present illness. Endocrine: Negative except as documented in history of present illness. Musculoskeletal: Negative except as documented in history of present illness. Integumentary: Negative except as documented in history of present illness. Neurologic: Negative except as documented in history of present illness. Health Status Allergies: Allergic Reactions (Selected) NKA, Allergies (1) ActiveReaction NKANone Documented Current medications: (Selected) Inpatient Medications Ordered LR 1,000 mL: 50 mL/hr, Intravenous Documented Medications Documented Euthyrox 50 mcg (0.05 mg) oral tablet: 0 Refill(s) Sutab oral tablet: USE DIRECTED FOR BOWEL PREPARATION Vitamin B12: 0 Refill(s) Xyzal 5 mg oral tablet: 5 mg, 1 tab(s), Oral, qPM, 0 Refill(s) biotin 10 mg oral tablet: 10 mg, 1 tab(s), Oral, qDay, 30 tab(s), 0 Refill(s) levothyroxine 50 mcg (0.05 mg) oral tablet: 50 mcg, 1 tab(s), Oral, qDayAC, 0 Refill(s) omeprazole 40 mg oral delayed release capsule: 40 mg, 1 cap(s), Oral, qDay, 30 cap(s), 0 Refill(s), Medications (1) Active Scheduled: (0) Continuous: (1) Lactated Ringers Infusion 1,000 mL 1,000 mL, Intravenous, 50 mL/hr PRN: (0) Problem list: No problem items selected or recorded., Active Problems (3) Dysphagia GERD (gastroesophageal reflux disease) Hypothyroidism Histories Past Medical History: No active or resolved past medical history items have been selected or recorded. Family History: Hypothyroidism Mother Diabetes mellitus type 2 Father Brother High blood pressure Father Stroke Father Heart attack Father Hypercholesterolemia Father Kidney disease Father Parkinson disease Mother GERD - Gastro-esophageal reflux disease Mother Procedure history: EGD (esophagogastroduodenoscopy) gastric outlet reduction ([id number]) on 03/15/2022 at 56 Years. Social History Social & Psychosocial Habits Alcohol 03/15/2022 Use: Current Type: Beer, Liquor, Wine Frequency: 1-2 times per week Substance Abuse 03/15/2022 Use: Never Tobacco 03/15/2022 Tobacco Use: Never (less than 100 in l . Physical Examination Vital Signs 07/11/2023 9:09 EST Heart Rate Monitored 76 bpm Respiratory Rate 22 br/min HI Systolic Blood Pressure Non-Invasive 122 mmHg Diastolic Blood Pressure Non-Invasive 73 mmHg 07/11/2023 9:05 EST Heart Rate Monitored 46 bpm bpm Respiratory Rate - Anes 21 br/min br/min Systolic Blood Pressure Non-Invasive 119 mmHg mmHg Diastolic Blood Pressure Non-Invasive 75 mmHg mmHg 07/11/2023 9:00 EST Heart Rate Monitored 73 bpm bpm Respiratory Rate - Anes 22 br/min br/min Systolic Blood Pressure Non-Invasive 122 mmHg mmHg Diastolic Blood Pressure Non-Invasive 87 mmHg mmHg 07/11/2023 8:55 EST Heart Rate Monitored 87 bpm bpm Respiratory Rate - Anes 19 br/min br/min Systolic Blood Pressure Non-Invasive 94 mmHg mmHg Diastolic Blood Pressure Non-Invasive 64 mmHg mmHg 07/11/2023 8:50 EST Systolic Blood Pressure Non-Invasive 132 mmHg mmHg Diastolic Blood Pressure Non-Invasive 79 mmHg mmHg 07/11/2023 7:53 EST Temperature Temporal Artery 36.5 DegC Apical Heart Rate 72 bpm Respiratory Rate 13 br/min LOW Systolic Blood Pressure Non-Invasive 124 mmHg Diastolic Blood Pressure Non-Invasive 76 mmHg Blood Pressure Method Automatic Blood Pressure Location Left arm Blood Pressure Cuff Size Large Vital Signs(last 24 hrs) Last Charted Heart Rate Cyxbfcyiz67 bpm (JUL 11 09:09) Resp Rate H 22br/min (JUL 11 09:09) HTG450 mmHg (JUL 11 09:09) DBP73 mmHg (JUL 11 09:09) BMI29.45 (JUL 11 07:53) Measurements from flowsheet : Measurements 07/11/2023 7:53 EST Height 162 cm Admission Weight 77.3 kg Weight Method Stated [place] Body Weight 54.19 kg BSA Admission 1.82 Body Mass Index 29.45 kg/m2 Pain assessment: Pain Assessment 07/11/2023 7:53 EST Primary Pain Intensity 0 Pain Scale Type 0-10 Pain scale . General: Alert and oriented. Airway: Normal neck range of motion. Mallampati classification: II (soft palate, fauces, uvula visible). Head: Normocephalic. Dentition Evaluation: Intact, Own teeth. Neck: Full range of motion. Respiratory: Lungs are clear to auscultation. Cardiovascular: Normal rate. Heart Sounds: Normal. Gastrointestinal: Soft. Musculoskeletal Normal range of motion. Integumentary: Intact, Warm, Dry. Neurologic: Alert, Oriented. Review / Management Results review: No qualifying data available , Lab results 07/11/2023 9:10 EST SN - GCD - ASA Class 2 07/11/2023 9:10 EST SN - CTm - Anesthesia Stop Time Anesthesia Stop Anesthesia Final Record OP Colonoscopy 07/11/2023 9:09 EST Heart Rate Monitored 76 bpm Respiratory Rate 22 br/min HI Systolic Blood Pressure Non-Invasive 122 mmHg Diastolic Blood Pressure Non-Invasive 73 mmHg Heart Rhythm Regular Oxygen Therapy Room air Oxygen Saturation 94 % Lactated Ringers Injection 500 mL mL 07/11/2023 9:07 EST AO ENDO Procedure Record AO ENDO Procedure Record 07/11/2023 9:05 EST Heart Rate Monitored 46 bpm bpm Respiratory Rate - Anes 21 br/min br/min Systolic Blood Pressure Non-Invasive 119 mmHg mmHg Diastolic Blood Pressure Non-Invasive 75 mmHg mmHg Oxygen Saturation 96.6 % % 07/11/2023 9:03 EST SN - IL - Medication simethicone 40 mg/0.6 mL Liquid 30mL SN - IL - Route of Administration Endoscopic SN - IL - By (Single) SN - IL - By (Single) SN - IL - Time Administered 07/11/2023 9:03 07/11/2023 9:00 EST SN - PP - Body Position Lateral Right Side-up Standard Intra-op 07/11/2023 9:00 EST Heart Rate Monitored 73 bpm bpm Respiratory Rate - Anes 22 br/min br/min Systolic Blood Pressure Non-Invasive 122 mmHg mmHg Diastolic Blood Pressure Non-Invasive 87 mmHg mmHg Oxygen Saturation 95.3 % % propofol 40 mg mg 07/11/2023 8:59 EST SN - Cul - Culture Type No Specimen per Surgeon SN - Cul - Kind Specimen 07/11/2023 8:58 EST SN - Proc - Anesthesia Type MAC SN - Proc - EBL 0 mL SN - Proc - Actual Procedure COLONOSCOPY 07/11/2023 8:57 EST propofol 30 mg mg 07/11/2023 8:56 EST SN - GCD - Post-operative Diagnosis SCREENING SN - GCD - Case Level OPD Level 3 07/11/2023 8:55 EST Heart Rate Monitored 87 bpm bpm Respiratory Rate - Anes 19 br/min br/min Systolic Blood Pressure Non-Invasive 94 mmHg mmHg Diastolic Blood Pressure Non-Invasive 64 mmHg mmHg Oxygen Saturation 96.3 % % 07/11/2023 8:54 EST SN - CAt - Case Attendee SN - CAt - Case Attendee SN - CAt - Case Attendee SN - CAt - Case Attendee SN - CAt - Case Attendee SN - CAt - Case Attendee SN - CAt - Case Attendee SN - CAt - Case Attendee SN - CAt - Role Performed Primary Surgeon SN - CAt - Role Performed Central Services Tech 1 SN - CAt - Role Performed Home Office Claims Examiner SN - CAt - Role Performed [facility] 07/11/2023 8:52 EST lidocaine 100 mg mg propofol 100 mg mg 07/11/2023 8:51 EST SN - CTm - Anesthesia Start Time Anesthesia Start Lactated Ringers Injection Begin Bag 1,000 mL mL [place] History and Physical 07/11/2023 8:50 EST Systolic Blood Pressure Non-Invasive 132 mmHg mmHg Diastolic Blood Pressure Non-Invasive 79 mmHg mmHg 07/11/2023 8:14 EST Urinary Elimination Voiding, no difficulties IV Present Present Allergies No Anesthesia Extension Set Applied Yes Colon Prep Results Excellent Consent Form Signed Yes Patient Dressed In Hospital gown History & Physical Update On Chart Yes History & Physical On Chart Yes Bowel Prep Completed Yes Obstructive Sleep Apnea Assess Completed Yes Belongings At Bedside Cell phone, Pants, Purse, Shirt, Shoes, Socks, Undergarments NPO Status Maintained Allergy Band on and Verified No Patient ID Band on and Verified Yes Implants Verified Yes Pacemaker/AICD Verified Yes Site Verified by Patient/Family Yes Anesthesia Consent Signed Yes Last Fluid Intake 07/11/2023 5:30 07/11/2023 8:03 EST Continuous IV Infusions LR Antecubital Right 07/11/2023 22 gauge Peripheral IV Activity: Insert new site Peripheral IV Dressing Condition: Clean, Dry, Intact Peripheral IV Dressing Activity: Applied, Transparent dressing Peripheral IV Line Status/Patency: Flushes easily, Continuous infusion Peripheral IV Site Condition: No complications Peripheral IV Equipment: Extension set Lactated Ringers Injection Begin Bag 1,000 mL mL 07/11/2023 7:53 EST Designated Person #1 We May Share APRIL Reed/ [phone] Designated Person #1 Relationship Spouse Height 162 cm Admission Weight 77.3 kg Weight Method Stated [place] Body Weight 54.19 kg BSA Admission 1.82 Body Mass Index 29.45 kg/m2 Temperature Temporal Artery 36.5 DegC Apical Heart Rate 72 bpm Respiratory Rate 13 br/min LOW Systolic Blood Pressure Non-Invasive 124 mmHg Diastolic Blood Pressure Non-Invasive 76 mmHg Blood Pressure Method Automatic Blood Pressure Location Left arm Blood Pressure Cuff Size Large Primary Pain Intensity 0 Pain Scale Type 0-10 Pain scale Heart Rhythm Regular Cardiac Rhythm Sinus rhythm Oxygen Therapy Room air Oxygen Saturation 94 % Status No, per patient Sensory Deficits None Infectious Disease Symptoms Patient states no symptoms Infectious Disease Recent Exposure No Alcohol and Drug Use No Employee of Institutional Living No Health Care Employee No History of Exposure to TB No History of Positive Chest X-Ray for TB No History of Positive TB Skin Test No Homeless No Known Immunosuppression No Recent Immigrant No Resident of Institutional Living No Bloody Sputum No Fatigue No Fever No Loss of Appetite No Night Sweats No Persistent Cough > 3 Weeks No Weight Loss No Arrival Mode Ambulatory Accompanied By On Arrival Family GI Prep Sutab GI Prep Completed Yes GI Prep Results Yellow, Clear Barriers to Learning None evident Teaching Method Explanation, Printed materials Preferred Spoken Language Wallisian Preferred Written Language Wallisian Information Given by Patient Patient's Current Physicians Ranny Discharge To, Anticipated Home independently Activity Status ADL Awake Standard Safety ID band on, Call device within reach, Bed in low position, Wheels locked, Upper/Half-Length side-rails up, Safety level maintained Prev Test Positive/Diagnosis w/COVID-19 Yes Previous COVID-19 Positive Date 2020 Current Quarantine/Isolated any Illness No Any Contact with Sick Animals/Birds No Traveled Anywhere in Last 30 Days No No Personal Devices, Patient Valuables None Admission Note-Nursing Procedure/Therapy Intake . Assessment and Plan [place] [employer] Anesthesiologists (ASA) physical status classification: Class II. Anesthetic Preoperative Plan Premedication: intravenous. Anesthetic technique: MAC. Induction: intravenously. Maintenance airway: Mask. Postoperative pain management: Per surgeon. Risks discussed: nausea, vomiting, headache, sore throat, dental injury, hypotension, allergic reaction, serious complications. Informed consent: signed by patient. Digitally Signed by MANUEL FIGUEROA on 07/11/2023 09:11 AM [facility]12-08-2023 Note [facility] ADMISSION HISTORY AND PHYSICIAL CHIEF COMPLAINT: HISTORY OF PRESENT ILLNESS: REVIEW OF SYSTEMS: ACTIVE PROBLEMS: (3) Dysphagia ([id number]) GERD (gastroesophageal reflux disease) ([id number]) Hypothyroidism (86115931) MEDICATIONS: Active Inpt Meds: None Active PRN Meds: None One Time Meds: None Active IV Meds: Lactated Ringers Infusion 1,000 mL (LR 1,000 mL) Start: 07/11/23 7:50:00 EST, Rate: 50 mL/hr, 07/11/23 7:50:00 EST ALLERGIES: (1) NKA FAMILY HISTORY: SOCIAL HISTORY: PHYSICAL EXAM: VITALS: [id number](kg) 07/11 07:5336.5--[id number]/08 77.3 24 Hr Tmax: 36.5 at 07/11 07:53 36 Hr Tmax: 36.5 at 07/11 07:53 Vital Signs are the last 5 in the past 48 hours. Weights display the last 5 within 7 days. Initial Wt: 07/11 77.3 kg 170 lb Current Wt: 07/11 77.3 kg 170 lb GENERAL: HEENT: CARDIOVASCULAR: RESPIRATORY: ABDOMEN: EXREMETIES: NEUROLOGICAL: PSYCHIATRIC: LABS: No 36hr Lab Data DIAGNOSTICS: IMPRESSION: PLAN: History and Physical Update I have examined the patient; reviewed the H&P and there are no changes to the H&P unless noted below. Digitally Signed by UGO VILLALBA MD on 07/11/2023 08:55 AM [facility]08-12-2022 Evaluation + Plan noteExtracted from: Title:Clinical Document Author:UGO VILLALBA Date:03/15/22 [facility] ADMISSION HISTORY AN D PHYSICIAL CHIEF COMPLAINT: HISTORY OF PRESENT ILLNESS: REVIEW OF SYSTEMS: ACTIVE PROBLEMS: (2) GERD (gastroesophageal reflux disease) ([id number]) Hypothyroidism ([id number]) MEDICATIONS: Active Inpt Meds: None Active PRN Meds: None One Time Meds: None Active IV Meds: Lactated Ringers Infusion 1,000 mL (LR 1,000 mL) Start: 03/15/22 7:55:00 EDT, Rate: 50 mL/hr, 03/15/22 7:55:00 EDT ALLERGIES: (1) NKA FAMILY HISTORY: SOCIAL HISTORY: PHYSICAL EXAM: VITALS: [id number](kg) 03/15 08:0635.9117/[id number]/12 75.0 24 Hr Tmax: 35.9 at 03/15 08:06 36 Hr Tmax: 35.9 at 03/15 08:06 Vital Signs are the last 5 in the past 48 hours. Weights display the last 5 within 7 days. Initial Wt: 03/15 75.0 kg 165 lb Current Wt: 03/15 75.0 kg 165 lb GENERAL: HEENT: CARDIOVASCULAR: RESPIRATORY: ABDOMEN: EXREMETIES: NEUROLOGICAL: PSYCHIATRIC: LABS: No 36hr Lab Data DIAGNOSTICS: IMPRESSION: PLAN: History and Physical Update I have examined the patient; reviewed the H&P and there are no changes to the H&P unless noted below. [facility] 08-12-2022 Hospital Discharge instructions Patient Education 03/15/2022 09:50:01 Moderate Conscious Sedation, Adult, Care After Moderate Conscious Sedation, Adult, Care After These instructions provide you with information about caring for yourself after your procedure. Your health care provider may also give you more specific instructions. Your treatment has been plannedaccording to current medical practices, but problems sometimes occur. Call your health care provider if you have any problems or questions after your procedure. What can I expect after the procedure? After your procedure, it is common: To feel sleepy for several hours. To feel clumsy and have poor balance for several hours. To have poor judgment for several hours. To vomit if you eat too soon. Follow these instructions at home: For at least 24 hours after the procedure: Do not: ?Participate in activities where you could fall or become injured. ?Drive. ?Use heavy machinery. ?Drink alcohol. ?Take sleeping pills or medicines that cause drowsiness. ?Make important decisions or sign legal documents. ?Take care of children on your own. Rest. Eating and drinking Follow the diet recommended by your health care provider. If you vomit: ?Drink water, juice, or soup when you can drink without vomiting. ?Make sure you have little or no nausea before eating solid foods. General instructions Have a responsible adult stay with you until you are awake and alert. Take heyg-qze-dxvrazl and prescription medicines only as told by your health care provider. If you smoke, do not smoke without supervision. Keep all follow-up visits as told by your health care provider. This is important. Contact a health care provider if: You keep feeling nauseous or you keep vomiting. You feel light-headed. You develop a rash. You have a fever. Get help right away if: You have trouble breathing. This information is not intended to replace advice given to you by your health care provider. Make sure you discuss any questions you have with your health care provider. Document Released: 05/11/2014 Document Revised: 07/03/2018 Document Reviewed: 11/09/2016 Health Benefits Direct Patient Education 2020 [employer]. 03/15/2022 09:49:57 Esophagogastroduodenoscopy, Care After (06208) Esophagogastroduodenoscopy, Care After Refer to this sheet in the next few weeks. These instructions provide you with information about caring for yourself after your procedure. Your health care provider may also give you more specific instructions. Your treatment has been planned according to current medical practices, but problems sometimes occur. Call your health care provider if you have any problems or questions after your procedure. What can I expect after the procedure? After the procedure, it is common to have: A sore throat. Nausea. Bloating. Dizziness. Fatigue. Follow these instructions at home: Do not eat or drink anything until the numbing medicine (local anesthetic) has worn off and your gag reflex has returned. You will know that the local anesthetic has worn off when you can swallow comfortably. Do not drive for 24 hours if you received a medicine to help you relax (sedative). If your health care provider took a tissue sample for testing during the procedure, make sure to get your test results. This is your responsibility. Ask your health care provider or the department performing the test when your results will be ready. Keep all follow-up visits as told by your health care provider. This is important. Contact a health care provider if: You cannot stop coughing. You are not urinating. You are urinating less than usual. Get help right away if: You have trouble swallowing. You cannot eat or drink. You have throat or chest pain that gets worse. You are dizzy or light-headed. You faint. You have nausea or vomiting. You have chills. You have a fever. You have severe abdominal pain. You have black, tarry, or bloody stools. This information is not intended to replace advice given to you by your health care provider. Make sure you discuss any questions you have with your health care provider. Document Released: 07/07/2013 Document Revised: 12/26/2016 Document Reviewed: 06/13/2016 Health Benefits Direct Interactive Patient Education 2019 [employer]. Follow Up Care 02/06/2022 13:49:27 With:UGO VILLALBA MD [facility] [address] [facility] [address] [place], [place] [id number] [phone] When: Unknown Comments:Dr Blood office will contact you with biopsy results. Follow up with PCP for any problems. [facility] 08-12-2022 Note Discharge Instructions Thank you for allowing [facility] to assist you with your healthcare needs. The following is importantdischarge information regarding your hospital visit. What to do next Follow Up Appointments Follow Up with UGO VILLALBA MD When Why: Dr Blood office will contact you with biopsy results. Follow up with PCP for any problems. Where: [address] [facility] [address] [place], [place] [phone] The Following Activity and Diet Have Been Ordered for You No qualifying data available. No qualifying data available. The Following Equipment Has Been Ordered for You No qualifying data available. The Following Treatments Have Been Ordered for You Discharge Labs No qualifying data available. Discharge Radiology No qualifying data available. Other Therapies No qualifying data available. Post Acute Orders No qualifying data available. Someone Will Contact You Regarding These Home Health Referrals No home referrals have been ordered for you. No one will call you. Allergies NKA Medications Please ask your primary doctor or pharmacist before taking any other medication not listed, including over the counter drugs, herbal medications, vitamins and or supplements as they may interact withyour home medications. What How Much When Instructions Last Dose Unchanged cyanocobalamin (Vitamin B12) Unchanged levocetirizine (Xyzal 5 mg oral tablet) 1 tab(s) by mouth Once a day (in the evening) Unchanged levothyroxine (Euthyrox 50 mcg (0.05 mg) oral tablet) Unchanged levothyroxine (levothyroxine 50 mcg (0.05 mg) oral tablet) 1 tab(s) by mouth Once a day before a meal Unchanged pantoprazole (pantoprazole 40 mg oral enteric coated tablet) 1 tab(s) by mouth Once a day before a meal Please take this list to your next doctor s visit. Bring all medications you take, including over the counter medications, herbals and other supplements with you to your doctor s visit. Patients and families are reminded to discard old lists and to update any records with all medication providers or retail pharmacies. Education Materials Moderate Conscious Sedation, Adult, Care After These instructions provide you with information about caring for yourself after your procedure. Your health care provider may also give you more specific instructions. Your treatment has been plannedaccording to current medical practices, but problems sometimes occur. Call your health care provider if you have any problems or questions after your procedure. What can I expect after the procedure? After your procedure, it is common: To feel sleepy for several hours. To feel clumsy and have poor balance for several hours. To have poor judgment for several hours. To vomit if you eat too soon. Follow these instructions at home: For at least 24 hours after the procedure: Do not: ? Participate in activities where you could fall or become injured. ? Drive. ? Use heavy machinery. ? Drink alcohol. ? Take sleeping pills or medicines that cause drowsiness. ? Make important decisions or sign legal documents. ? Take care of children on your own. Rest. Eating and drinking Follow the diet recommended by your health care provider. If you vomit: ? Drink water, juice, or soup when you can drink without vomiting. ? Make sure you have little or no nausea before eating solid foods. General instructions Have a responsible adult stay with you until you are awake and alert. Take qepk-btn-vfavwhd and prescription medicines only as told by your health care provider. If you smoke, do not smoke without supervision. Keep all follow-up visits as told by your health care provider. This is important. Contact a health care provider if: You keep feeling nauseous or you keep vomiting. You feel light-headed. You develop a rash. You have a fever. Get help right away if: You have trouble breathing. This information is not intended to replace advice given to you by your health care provider. Make sure you discuss any questions you have with your health care provider. Document Released: 05/11/2014 Document Revised: 07/03/2018 Document Reviewed: 11/09/2016 [employer] Patient Education 2020 [employer] Esophagogastroduodenoscopy, Care After Refer to this sheet in the next few weeks. These instructions provide you with information about caring for yourself after your procedure. Your health care provider may also give you more specific instructions. Your treatment has been planned according to current medical practices, but problems sometimes occur. Call your health care provider if you have any problems or questions after your procedure. What can I expect after the procedure? After the procedure, it is common to have: A sore throat. Nausea. Bloating. Dizziness. Fatigue. Follow these instructions at home: Do not eat or drink anything until the numbing medicine (local anesthetic) has worn off and your gag reflex has returned. You will know that the local anesthetic has worn off when you can swallow comfortably. Do not drive for 24 hours if you received a medicine to help you relax (sedative). If your health care provider took a tissue sample for testing during the procedure, make sure to get your test results. This is your responsibility. Ask your health care provider or the department performing the test when your results will be ready. Keep all follow-up visits as told by your health care provider. This is important. Contact a health care provider if: You cannot stop coughing. You are not urinating. You are urinating less than usual. Get help right away if: You have trouble swallowing. You cannot eat or drink. You have throat or chest pain that gets worse. You are dizzy or light-headed. You faint. You have nausea or vomiting. You have chills. You have a fever. You have severe abdominal pain. You have black, tarry, or bloody stools. This information is not intended to replace advice given to you by your health care provider. Make sure you discuss any questions you have with your health care provider. Document Released: 07/07/2013 Document Revised: 12/26/2016 Document Reviewed: 06/13/2016 [employer] Interactive Patient Education 2019 [employer] Additional Information VACCINATE! IT SAVES LIVES! Members of the community who have not yet received the COVID-19 vaccine and would like to receive it can visit one of [facility] vaccine clinics. There are many vaccine clinic locations within the [facility]. For locations and available times, please visit [email or web address] It is important to note that some COVID mobile vaccine clinics are held outdoors and may be canceled in rainy or stormy conditions. To learn more about pediatric vaccinations (ages 5-11), we invite you to visit the [facility] webpage. [email or web address] learn more about the COVID-19 vaccine, we invite you to visit the [facility] website for a list of frequently asked questions. [email or web address] [facility] [employer] Patient Portal Access Instructions: Stay connected with your healthcare team and access your personal medical information anytime with the [facility] Patient Portal.If you would like a full copy of your medical records, please contact the [facility] Medical Records Department, Friday through Friday between 8a.m. and 4:30p.m. Please follow the directions below to access the portal: 1.Access the email account you provided upon registration to the [facility].2.Look for an invitation email from [facility].3.Open the email and access the invitation link: Accept Invitation to [facility].Fill in the required haley to create your account. Sign into www.Health As We Age with your username and password that you created in the above steps to stay up to date. You can then view a summary of results, a summary of your visits, and the ability to download your summaries to your computer or send the information securely to a physician. Remember that your healthcare information is confidential, so carefully consider who you will allow to register on the [facility] Patient Portal for access to your information. You can also access the [employer] Patient Portal on the [employer]. Simply click on Health Records under [place] and then click on the tribr logo. HOW TO SAFELY DISPOSE OF PRESCRIPTION MEDICATIONS Please use one of the following methods to safely dispose of your unused medications. 1.Use a drug disposal kit: the drug disposal pouch allows you to safely discard your old and unuseddrugs. Ask your nurse to give you one when you are discharged.2.Visit a local take-back location: Many local pharmacies and police departments have programs that collect old and unwanted prescriptiondrugs. Call your local pharmacy or go to http://[employer].ly/8H1Ss6u to find one close to you.3.Make use of household items: Use cat litter or old coffee grounds to dispose medications if other options arenot available. Mix your drugs with these household products, seal them in an airtight container andthrow it into the garbage. Call [place]: [phone] to be sure your drugs can be disposed of in this way. Some medicines may require a different approach.4.Never flush your medications down the toilet. IF YOU HAVE BEEN PRESCRIBED AN OPIOID FOR PAIN If you have been prescribed an opioid (such as hydrocodone, oxycodone or morphine), it is critical to understand the possible side effects and risks of opioid pain medications. Even when taken as directed, opioids can have several side effects including: Tolerance, meaning you might need to take more of a medication for the same pain relief. Nausea, vomiting and/or constipation. Sleepiness, dizziness, dry mouth, confusion, depression or itching. Physical dependence, meaning you have withdrawal symptoms when a medication is stopped, can develop within a few days. KNOW YOUR RESPONSIBILITIES It is important to know exactly how much and how often to take the opioid pain medications you are prescribed. Never take opioids in higher amounts or more often than prescribed. Do not combine opioids with alcohol or other drugs that cause drowsiness, such as benzodiazepines, also known as benzos, including diazepam and alprazolam, muscle relaxants or sleep aids. Never sell or share prescription opioids. This is illegal. Store opioids in a secure place and out of reach of others (including children, family, friends and visitors). The last page of this document has been signed and retained as a CHART COPY. Signatures Patient Education Materials Moderate Conscious Sedation, Adult, Care After Esophagogastroduodenoscopy, Care After (17224) Medication Leaflets My discharge plan and instructions have been reviewed and explained to me and I,HIGINIO LLAMAS understand my current condition and have read and understand these discharge instructions. I have received awritten copy of the plan/instructions. If I have questions, I am aware that I should contact my doctor. Patient/Fresh Foods Clerk Signature: Date/Time: Relationship to Patient: Witness Name/Signature: Date/Time: [facility]08-12-2022 Anesthesiology Consult note Patient: HIGINIO LLAMAS Age: 56 years Sex: Female : 1965 Associated Diagnoses: None Author: ANASTASIA MORATAYA Assessment Postanesthesia assessment Mental status: alert & oriented x 4. Respiratory function: lungs are clear to auscultation. Respiratory support: none. CV function: Normal rate. Cardiovascular support: none. Pain. Nausea status: denies nausea. Postoperative hydration status: within normal limits. Digitally Signed by ANASTASIA MORATAYA on 03/15/2022 09:48 AM [facility]08-12-2022 Note [facility] ADMISSION HISTORY AND PHYSICIAL CHIEF COMPLAINT: HISTORY OF PRESENT ILLNESS: REVIEW OF SYSTEMS: ACTIVE PROBLEMS: (2) GERD (gastroesophageal reflux disease) ([id number]) Hypothyroidism (91022990) MEDICATIONS: Active Inpt Meds: None Active PRN Meds: None One Time Meds: None Active IV Meds: Lactated Ringers Infusion 1,000 mL (LR 1,000 mL) Start: 03/15/22 7:55:00 EDT, Rate: 50 mL/hr, 03/15/22 7:55:00 EDT ALLERGIES: (1) NKA FAMILY HISTORY: SOCIAL HISTORY: PHYSICAL EXAM: VITALS: EhnulrUgnaZVFxlbaHZPlA8MCI5QjwkGz(kg) 03/15 08:0635.9117/[id number]/12 75.0 24 Hr Tmax: 35.9 at 03/15 08:06 36 Hr Tmax: 35.9 at 03/15 08:06 Vital Signs are the last 5 in the past 48 hours. Weights display the last 5 within 7 days. Initial Wt: 03/15 75.0 kg 165 lb Current Wt: 03/15 75.0 kg 165 lb GENERAL: HEENT: CARDIOVASCULAR: RESPIRATORY: ABDOMEN: EXREMETIES: NEUROLOGICAL: PSYCHIATRIC: LABS: No 36hr Lab Data DIAGNOSTICS: IMPRESSION: PLAN: History and Physical Update I have examined the patient; reviewed the H&P and there are no changes to the H&P unless noted below. Digitally Signed by UGO VILLALBA MD on 03/15/2022 09:35 AM [facility]08-12-2022 Anesthesiology Consult note Patient: HIGINIO LLAMAS Age: 56 years Sex: Female : 1965 Associated Diagnoses: None Author: ANASTASIA MORATAYA Preoperative Information Time of last food or liquid consumption: 03/15/2022 06:00:00 Anesthesia history Patient's history: negative. Family's history: negative. Review of Systems Ear/Nose/Mouth/Throat: Negative. Respiratory: Negative. Cardiovascular: Negative. Gastrointestinal: Reflux, obese. Genitourinary: Negative. Endocrine: hypothyroid. Musculoskeletal: Negative. Integumentary: Negative. Neurologic: Negative. Health Status Allergies: Allergic Reactions (Selected) NKA, Allergies (1) ActiveReaction NKANone Documented Current medications: (Selected) Inpatient Medications Ordered LR 1,000 mL: 50 mL/hr, Intravenous Documented Medications Documented Euthyrox 50 mcg (0.05 mg) oral tablet: 0 Refill(s) Vitamin B12: 0 Refill(s) Xyzal 5 mg oral tablet: 5 mg, 1 tab(s), Oral, qPM, 0 Refill(s) levothyroxine 50 mcg (0.05 mg) oral tablet: 50 mcg, 1 tab(s), Oral, qDayAC, 0 Refill(s) pantoprazole 40 mg oral enteric coated tablet: 40 mg, 1 tab(s), Oral, qDayAC, 0 Refill(s), Medications (1) Active Scheduled: (0) Continuous: (1) Lactated Ringers 1,000 mL 1,000 mL, Intravenous, 50 mL/hr PRN: (0) Problem list: Active Problems (2) GERD (gastroesophageal reflux disease) Hypothyroidism Histories Past Medical History: No active or resolved past medical history items have been selected or recorded. Family History: Hypothyroidism Mother Diabetes mellitus type 2 Father Brother High blood pressure Father Stroke Father Heart attack Father Hypercholesterolemia Father Kidney disease Father Parkinson disease Mother GERD - Gastro-esophageal reflux disease Mother Procedure history: EGD (esophagogastroduodenoscopy) gastric outlet reduction ([id number]) on 03/15/2022 at 56 Years. Social History Social & Psychosocial Habits Alcohol 03/15/2022 Use: Current Type: Beer, Liquor, Wine Frequency: 1-2 times per week Substance Abuse 03/15/2022 Use: Never Tobacco 03/15/2022 Tobacco Use: Never (less than 100 in l . Physical Examination Vital Signs 03/15/2022 8:06 EDT Temperature Temporal Artery 35.9 DegC Apical Heart Rate 70 bpm Respiratory Rate 15 br/min Systolic BP Left Arm 117 mmHg Diastolic BP Left Arm 93 mmHg AR Vital Signs(last 24 hrs) Last Charted Resp Rate 15 br/min (MAR 15 08:06) BMI28.58 (MAR 15 08:) Measurements from flowsheet : Measurements 03/15/2022 8:06 EDT Height 162 cm Admission Weight 75 kg Weight Method Stated [place] Body Weight 54.19 kg BSA Admission 1.8 Body Mass Index 28.58 kg/m2 Pain assessment: Pain Assessment 03/15/2022 8:06 EDT Primary Pain Intensity 0 Pain Scale Type 0-10 Pain scale . General: Alert and oriented. Airway: Normal temporomandibular joint mobility. Mallampati classification: II (soft palate, fauces, uvula visible). Head: Normocephalic. Dentition Evaluation: Own teeth. Neck: Supple. Respiratory: Lungs are clear to auscultation. Cardiovascular: Normal rate. Heart Sounds: Normal. Gastrointestinal: Soft. Musculoskeletal Normal range of motion. Integumentary: Intact. Neurologic: Alert, Oriented. Review / Management Results review: No qualifying data available , Lab results 03/15/2022 8:15 EDT Lactated Ringers Injection Begin Bag 1,000 mL mL 03/15/2022 8:06 EDT Designated Person #1 We May Share APRIL Reed/ [phone] Designated Person #1 Relationship Spouse Height 162 cm Admission Weight 75 kg Weight Method Stated [place] Body Weight 54.19 kg BSA Admission 1.8 Body Mass Index 28.58 kg/m2 Temperature Temporal Artery 35.9 DegC Apical Heart Rate 70 bpm Respiratory Rate 15 br/min Systolic BP Left Arm 117 mmHg Diastolic BP Left Arm 93 mmHg HI Primary Pain Intensity 0 Pain Scale Type 0-10 Pain scale Nail Bed Color [place] Capillary Refill < 2 seconds Heart Rhythm Regular Edema Generalized None All Lobes Breath Sounds Clear Oxygen Therapy Room air Oxygen Saturation 97 % Abdomen Description Non-distended, Soft Bowel Sounds All Quadrants Present Status No, per patient Skin Integrity Intact IV Present Present Hand Right 03/15/2022 22 gauge Peripheral IV Activity: Insert new site Peripheral IV Dressing Condition: Clean, Dry, Intact Peripheral IV Dressing Activity: Applied, Transparent dressing Peripheral IV Line Status/Patency: Flushes easily Peripheral IV Line Care: Secured with tape Peripheral IV Site Condition: No complications Peripheral IV Equipment: Extension set Peripheral IV Number of Attempts: 1 Neurological Symptoms Patient denies Extremity Movement Equal Characteristics of Speech Clear Level of Consciousness Alert Affect/Behavior Appropriate, Calm, Cooperative Orientation Oriented x 4 Sensory Deficits None Infectious Disease Symptoms Patient states no symptoms Infectious Disease Recent Exposure No Alcohol and Drug Use No Employee of Institutional Living No Health Care Employee No History of Exposure to TB No History of Positive Chest X-Ray for TB No History of Positive TB Skin Test No Homeless No Known Immunosuppression No Recent Immigrant No Resident of Institutional Living No Bloody Sputum No Fatigue No Fever No Loss of Appetite No Night Sweats No Persistent Cough > 3 Weeks No Weight Loss No Allergies No Children'S Aide On Yes Consent Form Signed Yes Patient Dressed In Hospital gown History & Physical Update On Chart Yes History & Physical On Chart Yes Obstructive Sleep Apnea Assess Completed No Orientation Assessment Oriented x 4 Barriers to Learning None evident Teaching Method Explanation Preferred Written Language Wallisian Preferred Spoken Language Wallisian Information Given by Patient Patient's Current Physicians Rito Discharge To, Anticipated Home with family care Activity Status ADL Awake, Repositions self NPO Status More than 8 hours Standard Safety ID band on, Call device within reach, Bed in low position, Wheels locked, Safety level maintained Prev Test Positive/Diagnosis w/COVID-19 Yes Previous COVID-19 Positive Date 07/2021 Current Quarantine/Isolated any Illness No Any Contact with Sick Animals/Birds No Traveled Anywhere in Last 30 Days No Allergy Band on and Verified No Patient ID Band on and Verified Yes Implants Verified No Pacemaker/AICD Verified No Anesthesia Consent Signed Yes Blood Consent Signed No Last Fluid Intake 03/14/2022 22:00 Last Food Intake 03/14/2022 22:00 Last Void 03/15/2022 7:50 No Personal Devices, Patient Valuables None Admission Note-Nursing Procedure/Therapy Intake 03/15/2022 8:04 EDT SN - Proc - Anesthesia Type MAC SN - Proc - EBL 0 mL SN - Proc - Actual Procedure ESOPHAGOGASTRODUODENOSCOPY WITH POSSIBLE DILATION 03/15/2022 8:02 EDT SN - PP - Body Position Lateral Right Side-up Standard Intra-op 03/15/2022 8:02 EDT SN - GCD - Post-operative Diagnosis GERD, DYSPHAGIA SN - GCD - Case Level OPD Level 3 03/15/2022 8:01 EDT SN - CAt - Case Attendee SN - CAt - Case Attendee SN - CAt - Case Attendee SN - CAt - Case Attendee SN - CAt - Case Attendee SN - CAt - Case Attendee SN - CAt - Case Attendee SN - CAt - Case Attendee SN - CAt - Role Performed Home Office Claims Examiner SN - CAt - Role Performed Procedure Nurse SN - CAt - Role Performed STRIPPER PRELIMINARY SN - CAt - Role Performed Primary Surgeon . Assessment and Plan [place] [employer] Anesthesiologists (ASA) physical status classification: Class II. Anesthetic Preoperative Plan Anesthetic technique: MAC. Postoperative pain management: Per surgeon. Informed consent: signed by patient. Digitally Signed by ANASTASIA MORATAYA on 03/15/2022 09:00 AM [facility] course Narrative No data available for this section [facility] Summary Purpose Family History No Family History Records Found No data available for this section No Family History Records Found Advance Directives No Advanced Directives Records FoundNo Advanced Directives Records Found Additional Source Comments INFORMATION SOURCE (unrecogn ized section and content) DATE CREATED AUTHOR AUTHOR'S ORGANIZ ATION 07/21/2023 [facility] ([place]) Care Team (unrecognized sect ion and content) Care Team Related Persons Name: SUMIT LLAMAS Address: [address] [place] [address] Patient Care team informatio n (unrecognized section and content) Care Team Related Persons Name: SUMIT LLAMAS Address: Home [address] [place] [address] FOR RECORDS PERTAINING TO PATIENTS WHO ARE OR HAVE BEEN ENROLLED IN A CHEMICAL DEPENDENCY/SUBSTANCEABUSE PROGRAM, SOME INFORMATION MAY BE OMITTED. This clinical summary was aggregated from multiple sources. Caution should be exercised in using it in the provision of clinical care. This summary normalizes information from multiple sources, and as a consequence, information in this document may materially change the coding, format and clinical context of patient data. In addition, data may be omitted in some cases. CLINICAL DECISIONS SHOULD BE BASED ON THE PRIMARY CLINICAL RECORDS. [facility]. provides no warranty or guarantee of the accuracy or completeness of information in this document.
[2023-08-22 10:47] LABS: Thyroid Stim Hormone (TSH) 0.13 uIU/mL (0.358-3.74)
== END | disposition home or self-care (01) ==
LOC: MFPLAB 08:55
PROVIDERS: PCP Family Medicine; Visit Provider Family Medicine
DX: E03.9 Hypothyroidism, unspecified (principal)
CPT/HCPCS: 36415; 84443

== ENCOUNTER → 2023-12-03 | Outpatient (CLI) | payer OTHER, SELFPAY ==
[2023-12-03 10:53] LABS: Vitamin B12 765 pg/mL (211-911)
[2023-12-03 11:05] LABS: Anion Gap 4 (5-15); BUN 15 mg/dL (7-18); BUN/Creat Ratio 16.3 RATIO (10-20); Calcium,Total 9.6 mg/dL (8.5-10.1); Chloride 108 mmol/L (98-107); Cholesterol 177 mg/dL (200); Creatinine, Serum 0.92 mg/dL (0.55-1.02); EST Glomerular Filtration Rate 67 mL/min (>60); Est Glom Filt Rate - Afr Amer 81 mL/min (>60); Glucose 112 mg/dL (74-106); High Density Lipoprotein 51 mg/dL; Potassium 4.2 mmol/L (3.5-5.1); Sodium Level 139 mmol/L (136-145); Thyroid Stim Hormone (TSH) 0.43 uIU/mL (0.358-3.74); Triglycerides 233 mg/dL; Very Low Density Lipoprotein 47 mg/dL (5-40)
== END | disposition home or self-care (01) ==
LOC: MFPLAB 09:05
PROVIDERS: PCP Family Medicine; Visit Provider Family Medicine
DX: E03.9 Hypothyroidism, unspecified (principal); E53.8 Deficiency of other specified B group vitamins
CPT/HCPCS: 36415; 80048; 80061; 82607; 84443

== ENCOUNTER → 2024-03-29 | Outpatient (CLI) | payer OTHER, SELFPAY ==
[2024-04-02 13:08] LABS: HPV APTIMA, High Risk Negative (Negative)
== END | disposition home or self-care (01) ==
LOC: LABSPEC 12:30
PROVIDERS: PCP Family Medicine; Referring Provider Nurse Practitioner Women's Health; Visit Provider Nurse Practitioner Women's Health
DX: Z12.4 Encounter for screening for malignant neoplasm of cervix (principal)
CPT/HCPCS: 87624; 88175; G0145

== ENCOUNTER → 2024-06-18 | Outpatient (CLI) | payer OTHER, SELFPAY ==
--- NOTE | 2024-06-18 08:26 | BI_ITS ---
MAMMOGRAPHY - BILATERAL SCREENING REASON FOR EXAM: Female, 58 years old. Routine annual screening examination. PERTINENT HISTORY: Non-contributory. TECHNIQUE: Digital bilateral breast esteban (3D mammographic acquisition) in the CC and MLO projections. 2-D mediolateral oblique (MLO) and craniocaudad (CC) views of both breasts were obtained. CAD: Full Field Digital Mammography with Computer Added Detection was performed. COMPARISON: Comparison is made with prior study July 25, 2022 and June 12, 2021. FINDINGS: Breast Composition: The breasts are heterogeneously dense, which may obscure small masses. There are no dominant masses or suspicious calcifications. No other significant abnormalities are identified. There has been no significant change since the prior study. BI/SCRN MAMM (CAD)W/ESTEBAN BILAT IMPRESSION: Stable bilateral screening mammogram. Yearly follow-up mammogram recommended. (A) ASSESSMENT CATEGORY: BIRADS Category 1: Negative. A letter regarding these results will be sent to the patient by the facility within 30 days. Approximately 10% of breast cancers are not detected by mammography. A normal mammogram should not delay biopsy of a clinically suspicious abnormality. [id number] Electronically Signed: Jakub Davis MD at 9:07 EST ,
== END | disposition home or self-care (01) ==
LOC: OPBI 08:26
PROVIDERS: PCP Family Medicine; Referring Provider Nurse Practitioner Women's Health; Visit Provider Nurse Practitioner Women's Health
DX: Z12.31 Encounter for screening mammogram for malignant neoplasm of breast (principal)
CPT/HCPCS: 77063; 77067

== ENCOUNTER → 2024-10-27 | Outpatient (CLI) | payer OTHER, SELFPAY ==
[2024-10-27 10:53] LABS: Hematocrit 42.5 % (37-47); Hemoglobin 14.3 g/dL (12.0-15.0); Mean Corp Hgb Conc 33.6 g/dL (32-36); Mean Corpuscular Volume 89.3 fL (81-99); Mean Platelet Vol. 11.1 fl (6.2-12.0); Platelet Count 288 K/mm3 (150-450); RBC Distribution Width CV 11.5 % (11.6-14.6); RBC Distribution Width SD 37.2 fl (35.1-43.9); Red Blood Count 4.76 M/mm3 (4.2-5.4)
[2024-10-27 11:35] LABS: ALB/GLOB Ratio 1.3 RATIO (0.9-2.4); AST(SGOT) 26 U/L (<=31); Alanine Aminotransfer ALT/SGPT 28 U/L (<=34); Albumin, Serum 4.3 g/dL (3.5-5.0); Alkaline Phosphatase 107 U/L (35-104); Anion Gap 10 (5-15); BUN 17 mg/dL (4-19); BUN/Creat Ratio 18.7 RATIO (10-20); Calcium,Total 9.8 mg/dL (7.6-11.0); Carbon Dioxide 24.1 mmol/L (21.0-32.0); Chloride 106 mmol/L (98-108); Creatinine, Serum 0.91 mg/dL (0.70-1.20); EST Glomerular Filtration Rate 74 (>60); Globulin 3.3 g/dL (2.2-4.2); Glucose 114 mg/dL (70-99); Potassium 4.5 mmol/L (3.3-5.1); Protein, Total 7.6 g/dL (5.9-8.4); Sodium Level 140 mmol/L (133-145); Thyroid Stim Hormone (TSH) 0.222 uIU/mL (0.300-4.200); Total Bilirubin 0.23 mg/dL (0.00-1.30); Vitamin B12 671 pg/mL (180-914)
== END | disposition home or self-care (01) ==
LOC: MFPLAB 09:08
PROVIDERS: PCP Family Medicine; Referring Provider Family Medicine; Visit Provider Family Medicine
DX: R10.13 Epigastric pain (principal); R53.83 Other fatigue; E03.9 Hypothyroidism, unspecified
CPT/HCPCS: 36415; 80053; 82306; 82533; 82607; 84439; 84443; 85027

== ENCOUNTER → 2024-11-11 | Outpatient (CLI) | payer OTHER, SELFPAY | END | disposition home or self-care (01) | LOC: LAB 09:24 | PROVIDERS: PCP Family Medicine; Referring Provider Otolaryngology Otolaryngology/Facial Plastic Surgery; Visit Provider Otolaryngology Otolaryngology/Facial Plastic Surgery | DX: T78.40XA Allergy, unspecified, initial encounter (principal) | CPT/HCPCS: 36415; 86003 ==

== ENCOUNTER → 2024-12-24 | Outpatient (CLI) | payer OTHER, SELFPAY ==
[2024-12-24 11:18] LABS: Free T3 3.1 pg/mL (2.18-3.98)
[2024-12-26 08:08] LABS: Thyroid Peroxidase AB < 9 IU/mL (0-34)
== END | disposition home or self-care (01) ==
LOC: MFPLAB 08:52
PROVIDERS: PCP Family Medicine; Referring Provider Family Medicine; Visit Provider Family Medicine
DX: E03.9 Hypothyroidism, unspecified (principal)
CPT/HCPCS: 36415; 84439; 84443; 84481; 86376